=== PATIENT | male | born 1955 ===

== ENCOUNTER 2017-08-26 10:01 | Observation (INO) | payer BC, MEDICAID, OTHER ==
[2017-08-26 10:01] VITALS: BMI 28.3
--- NOTE | 2017-08-26 11:34 | C.PDOC ---
History Of Present Illness 62 yr old male w/PMHx of CAD, hypercolesterolemia, BPH presents to the ER for evaluation for feeling dizzy this morning, associated with vertigo. Patient admits, " recently changed my glasses and not sure if that cause it". Patient denies fever, headache, visual changes, focal deficits, neck pain, chest pain, palpitation, SOB, dyspnea, diaphoresis, abd. pain, nausea, vomiting, diarrhea, back pain, denies weakness, sensory or vascular deficits to B/L lEs. Ambulate to ED. Time Seen by Provider: 08/26/17 10:38 Chief Complaint (Nursing): Dizziness/Lightheaded History Per: Patient History/Exam Limitations: no limitations Onset/Duration Of Symptoms: Sudden Onset (Morning) Current Symptoms Are (Timing): Still Present Past Medical History Reviewed: Historical Data, Nursing Documentation, Vital Signs Vital Signs: Last Vital Signs Temp 97.2 F L 08/26/17 10:04 Pulse 62 08/26/17 12:09 Resp 18 08/26/17 12:09 BP 133/76 08/26/17 12:09 Pulse Ox 95 08/26/17 13:20 - Medical History PMH: Diabetes, HTN Surgical History: Coronary Stent - [facility] Procedures FLUOROSCOPY OF LEFT HEART USING LOW OSMOLAR CONTRAST (10/13/16) FLUOROSCOPY OF MULT COR ART USING L OSM CONTRAST (10/13/16) MEASURE OF CARDIAC SAMPL & PRESSURE, L HEART, PERC APPROACH (11/08/16) PLAIN RADIOGRAPHY OF LEFT HEART USING OTHER CONTRAST (11/08/16) PLAIN RADIOGRAPHY OF MULT COR ART USING OTH CONTRAST (11/08/16) Family History: States: No Known Family Hx - Social History Hx Tobacco Use: No Hx Alcohol Use: No Hx Substance Use: No - Immunization History Hx Tetanus Toxoid Vaccination: No Hx Influenza Vaccination: No Hx Pneumococcal Vaccination: No Review Of Systems Except As Marked, All Systems Reviewed And Found Negative. Constitutional: Negative for: Fever Cardiovascular: Negative for: Chest Pain, Palpitations Respiratory: Negative for: Shortness of Breath Gastrointestinal: Negative for: Nausea, Vomiting Musculoskeletal: Negative for: Neck Pain Neurological: Positive for: Dizziness. Negative for: Weakness, Numbness, Headache Physical Exam - Physical Exam Appears: Non-toxic, No Acute Distress Skin: Warm, Dry, No Rash Head: Atraumatic, Normacephalic Eye(s): bilateral: PERRL, Other (Horizontal Nystagmus ) Ear(s): Bilateral: Normal Oral Mucosa: Moist Lips: Normal Appearing, No Swelling Neck: Normal, Normal ROM, Supple Chest: Symmetrical, No Tenderness Cardiovascular: Rhythm Regular, No Murmur Respiratory: Normal Breath Sounds, No Rales, No Rhonchi, No Stridor, No Wheezing Extremity: Normal ROM, No Swelling Neurological/Psych: Oriented x3, Normal Speech, Normal Motor ED Course And Treatment - Laboratory Results Result Diagrams: 08/26/17 12:08 08/26/17 12:08 Lab Interpretation: Normal ECG: Interpreted By Me, Viewed By Me ECG Rhythm: Sinus Rhythm ECG Interpretation: No Acute Changes Interpretation Of ECG: SR@56/min, NAD, no acute T wave or ST-T changes. O2 Sat by Pulse Oximetry: 95 (RA) Pulse Ox Interpretation: Normal - Radiology CXR: Viewed By Me, Read By Radiologist CXR Interpretation: Yes: No Acute Disease - CT Scan/US CT - Head Other Rad Studies (CT/US): Read By Radiologist, Radiology Report Reviewed CT/US Interpretation: PROCEDURE: CT HEAD WITHOUT CONTRAST. HISTORY: vertigo. COMPARISON: None available. TECHNIQUE: Axial computed tomography images were obtained through the head/brain without intravenous contrast. Radiation dose: Total exam DLP = 919.79 mGy-cm. This CT exam was performed using one or more of the following dose reduction techniques: Automated exposure control, adjustment of the mA and/or kV according to patient size, and/or use of iterative reconstruction technique. FINDINGS: HEMORRHAGE: No intracranial hemorrhage. BRAIN: No mass effect or edema. No atrophy or chronic microvascular ischemic changes. VENTRICLES: Unremarkable. No hydrocephalus. CALVARIUM: Unremarkable. PARANASAL SINUSES: Unremarkable as visualized. No significant inflammatory changes. MASTOID AIR CELLS: Unremarkable as visualized. No inflammatory changes. OTHER FINDINGS: None. IMPRESSION: Normal CT of the Head. No intracranial mass, hemorrhage or evidence of acute infarct. Progress Note: Case discussed with and admission to OBS s/o med-on - call recommend with consult. Case discussed with medicine and admission arranged. On re-eval, pt remained stable, not n any apparent distress. Neuorlogicaly intact. Rdsults review and discussed with pt, agrees with plan. 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 - Scribe Statement The provider has reviewed the documentation as recorded by the Scribe Ayla Valle All medical record entries made by the Joeibfredo were at my direction and personally dictated by me. I have reviewed the chart and agree that the record accurately reflects my personal performance of the history, physical exam, medical decision making, and the department course for this patient. I have also personally directed, reviewed, and agree with the discharge instructions and disposition.
[2017-08-26] MEDS ORDERED: Sodium Chloride 0.9% 1,000 ML IV ONE (11:35)
--- NOTE | 2017-08-26 12:03 | RAD ---
HISTORY: chest pain COMPARISON: No prior. TECHNIQUE: Chest PA and lateral FINDINGS: LUNGS: No active pulmonary disease. PLEURA: No significant pleural effusion identified. No pneumothorax apparent. CARDIOVASCULAR: Normal. OSSEOUS STRUCTURES: Degenerative changes in the spine with paravertebral osteophytes. VISUALIZED UPPER ABDOMEN: Normal. OTHER FINDINGS: None. IMPRESSION: No active disease.
[2017-08-26 12:14] LABS: BASO % 0.7 % (0.0-2.0); EOS # 0.1 K/uL (0.0-0.7); EOS % 1.8 % (0.0-4.0); HEMATOCRIT 40.2 % (35.0-51.0); LYMPH # 1.6 K/uL (1.0-4.3); LYMPH % 26.6 % (20.0-40.0); MEAN CELL VOLUME 88.2 fL (80.0-94.0); MEAN CORPUSCULAR HEMOGLOBIN 30.3 pg (27.0-31.0); MEAN CORPUSCULAR HGB CONC 34.4 g/dL (33.0-37.0); MEAN PLATELET VOLUME 9.3 fL (7.2-11.7); MONO # 0.6 K/uL (0.0-0.8); MONO % 9.2 % (0.0-10.0); RED CELL DISTRIBUTION WIDTH 12.7 % (11.5-14.5)
[2017-08-26 12:24] LABS: CHLORIDE 104 mmol/L (98-107); POTASSIUM 4.2 mmol/L (3.6-5.2); SODIUM 141 mmol/L (132-148)
[2017-08-26 12:26] LABS: AST/SGOT 25 U/L (17-59); BILIRUBIN,TOTAL 0.7 mg/dL (0.2-1.3); CARBON DIOXIDE 25 mmol/L (22-30); GFR AFRICAN-AMERICAN > 60; TOTAL PROTEIN 7.9 g/dL (6.3-8.3)
[2017-08-26 12:27] LABS: ALB/GLOB RATIO 1.3 (1.0-2.1); ALKALINE PHOSPHATASE 61 U/L (38-126); ALT/SGPT 31 U/L (21-72); BLOOD UREA NITROGEN 17 mg/dL (9-20); CALCIUM 9.3 mg/dl (8.6-10.4); GLUCOSE,RANDOM 120 mg/dL (75-110)
[2017-08-26 12:29] LABS: URINE BILIRUBIN NEGATIVE (NEGATIVE); URINE BLOOD NEGATIVE (NEGATIVE); URINE COLOR Yellow (YELLOW); URINE GLUCOSE (UA) NORMAL (Normal); URINE KETONE NEGATIVE (NEGATIVE); URINE LEUKOCYTE ESTERASE TRACE Leu/uL (Negative); URINE PROTEIN NEGATIVE (NEGATIVE); URINE UROBILINOGEN NORMAL mg/dL (0.2-1.0); WBC URINE 2 /hpf (0-5)
--- NOTE | 2017-08-26 12:39 | CT ---
PROCEDURE: CT HEAD WITHOUT CONTRAST. HISTORY: vertigo COMPARISON: None available. TECHNIQUE: Axial computed tomography images were obtained through the head/brain without intravenous contrast. Radiation dose: Total exam DLP = 919.79 mGy-cm. This CT exam was performed using one or more of the following dose reduction techniques: Automated exposure control, adjustment of the mA and/or kV according to patient size, and/or use of iterative reconstruction technique. FINDINGS: HEMORRHAGE: No intracranial hemorrhage. BRAIN: No mass effect or edema. No atrophy or chronic microvascular ischemic changes. VENTRICLES: Unremarkable. No hydrocephalus. CALVARIUM: Unremarkable. PARANASAL SINUSES: Unremarkable as visualized. No significant inflammatory changes. MASTOID AIR CELLS: Unremarkable as visualized. No inflammatory changes. OTHER FINDINGS: None. IMPRESSION: Normal CT of the Head. No intracranial mass, hemorrhage or evidence of acute infarct.
--- NOTE | 2017-08-26 14:54 | CP.PCM.PN ---
Subjective - Date & Time of Evaluation Date of Evaluation: 08/26/17 Time of Evaluation: 14:53 - Subjective Subjective: CC: Dizziness HPI: Patient is a 62 year old male, with PMHx of type two diabetes mellitus , CAD, hyperlipidemia, and BPH, who presents to the ER for evaluation after feeling dizzy this morning. Patient reports the dizziness began "when he first rolled over this morning" and continued as he walked to go to his car. He states it felt like the room was spinning. He reports similar symptoms two months ago "when he was feeling stressed," but the symptoms went away on their own when the unnamed stressor ceased. Patient notes his prescription for his glasses changed recently. He denies vision loss, weakness of extremities, syncopal episode, facial droop, or headache. He reports eating and drinking normally lately, but admits difficulty urinating. He states his voiding has improved since being started on floxmax, finasteride for his BPH, but still finds himself urinating "a lot at night." Patient denies fever, headache, visual changes, focal deficits, neck pain, chest pain, palpitation, SOB, dyspnea , diaphoresis, abd. pain, nausea, vomiting, dysuria. PMHx: Diabetes Mellitus, type II (one year ago diagnosed), BPH, hyperlipidemia, CAD SHx:Cath with stent placement (Dr. Crespo - one year ago) Fam Hx: Non-contributory Shx: smoked for 5 years (1 ppd), quit 30 years ago; denies alcohol or drug use Objective - Vital Signs/Intake and Output Vital Signs (last 24 hours): Temp Pulse Resp BP Pulse Ox 97.2 F L 53 L 18 130/79 98 08/26/17 10:04 08/26/17 14:20 08/26/17 14:20 08/26/17 14:20 08/26/17 14:20 - Labs Labs: 08/26/17 12:08 08/26/17 12:08 PT 11.4 SECONDS (9.7-12.2) 08/26/17 12:08 INR 1.0 08/26/17 12:08 APTT 30 SECONDS (21-34) 08/26/17 12:08 - Constitutional Appears: Non-toxic, No Acute Distress - Head Exam Head Exam: ATRAUMATIC, NORMOCEPHALIC - Eye Exam Eye Exam: EOMI. absent: Scleral icterus Pupil Exam: PERRL - ENT Exam ENT Exam: Mucous Membranes Moist - Neck Exam Neck Exam: Full ROM - Respiratory Exam Respiratory Exam: Clear to Ausculation Bilateral, NORMAL BREATHING PATTERN. absent: Rales, Rhonchi, Wheezes - Cardiovascular Exam Cardiovascular Exam: Bradycardia, +S1, +S2 - GI/Abdominal Exam GI & Abdominal Exam: Soft, Normal Bowel Sounds. absent: Tenderness - Extremities Exam Extremities Exam: Normal Inspection. absent: Pedal Edema - Back Exam Back Exam: absent: CVA tenderness (L), CVA tenderness (R) - Neurological Exam Neurological Exam: Alert, Awake, Oriented x3 - Psychiatric Exam Psychiatric exam: Normal Affect, Normal Mood - Skin Skin Exam: Normal Color, Warm Assessment and Plan - Assessment and Plan (Free Text) Plan: Dizziness Pt reports "room spinning" with change of position Orthostatic vitals: WNL CXR: NAD CT Head (08/26/17): normal CT head. No mass, hemorrhage, or acute infarct. (see full report) EKG: sinus demario, 56 bpm, no st/t wave changes Cardio consult: Dr. Crespo, help appreciated - f/u DRISS x 2 - f/u ECHO - f/u TSH, free t4 Meclizine 25mg PO TID CAD Hx of stent placement one year ago Crestor 5mg HS Toprol 25mg PO BID ASA 81mg PO daily Type Two diabetes mellitus Accuchecks Metformin 500mg PO BID Lisinopril 5mg PO Daily - f/u A1C BPH Flomax 0.4mg PO daily Finasteride 5mg PO Daily UA on admission: WNL Monitor Prophylaxis Heparin 5000u SC Q12H Pepcid 20mg PO BID SCDs Discussed with Dr. Dewayne Montana PGY-2
[2017-08-26 20:30] VITALS: RESP 20
--- NOTE | 2017-08-26 22:17 | CP.PCM.CON ---
History of Present Illness - History of Present Illness History of Present Illness: CC: Dizziness HPI: Patient is a 62 year old male, with PMHx of type two diabetes mellitus , CAD, hyperlipidemia, and BPH, who presents to the ER for evaluation after feeling dizzy this morning. Patient reports the dizziness began "when he first rolled over this morning" and continued as he walked to go to his car. He states it felt like the room was spinning. He reports similar symptoms two months ago "when he was feeling stressed," but the symptoms went away on their own when the unnamed stressor ceased. Patient notes his prescription for his glasses changed recently. He denies vision loss, weakness of extremities, syncopal episode, facial droop, or headache. He reports eating and drinking normally lately, but admits difficulty urinating. He states his voiding has improved since being started on floxmax, finasteride for his BPH, but still finds himself urinating "a lot at night." Patient denies fever, headache, visual changes, focal deficits, neck pain, chest pain, palpitation, SOB, dyspnea , diaphoresis, abd. pain, nausea, vomiting, dysuria. PMHx: Diabetes Mellitus, type II (one year ago diagnosed), BPH, hyperlipidemia, CAD SHx:Cath with stent placement (one year ago) Fam Hx: Non-contributory Shx: smoked for 5 years (1 ppd), quit 30 years ago; denies alcohol or drug use Physical Examination - Constitutional Appears: Non-toxic, No Acute Distress - Head Exam Head Exam: ATRAUMATIC, NORMOCEPHALIC - Eye Exam Eye Exam: EOMI. absent: Scleral icterus Pupil Exam: PERRL - ENT Exam ENT Exam: Mucous Membranes Moist - Neck Exam Neck Exam: Full ROM - Respiratory Exam Respiratory Exam: Clear to Ausculation Bilateral, NORMAL BREATHING PATTERN. absent: Rales, Rhonchi, Wheezes - Cardiovascular Exam Cardiovascular Exam: Bradycardia, +S1, +S2 - GI/Abdominal Exam GI & Abdominal Exam: Soft, Normal Bowel Sounds. absent: Tenderness - Extremities Exam Extremities Exam: Normal Inspection. absent: Pedal Edema - Back Exam Back Exam: absent: CVA tenderness (L), CVA tenderness (R) - Neurological Exam Neurological Exam: Alert, Awake, Oriented x3 - Psychiatric Exam Psychiatric exam: Normal Affect, Normal Mood - Skin Skin Exam: Normal Color, Warm Past Patient History - Infectious Disease Hx of Infectious Diseases: None - Past Medical History & Family History Past Medical History?: Yes - Past Social History Smoking Status: Former Smoker - CARDIAC Hx Hypertension: Yes - PULMONARY Hx Respiratory Disorders: No - NEUROLOGICAL Hx Neurological Disorder: No - HEENT Hx HEENT Problems: No - RENAL Hx Chronic Kidney Disease: No - ENDOCRINE/METABOLIC Hx Endocrine Disorders: Yes Hx Diabetes Mellitus Type 2: Yes - MUSCULOSKELETAL/RHEUMATOLOGICAL Hx Falls: No - PSYCHIATRIC Hx Substance Use: No - SURGICAL HISTORY Hx Coronary Stent: Yes - ANESTHESIA Hx Anesthesia: Yes Hx Anesthesia Reactions: No Meds Allergies/Adverse Reactions: Allergies Allergy/AdvReac Type Severity Reaction Status Date / Time No Known Allergies Allergy Verified 11/08/16 15:38 - Medications Medications: Current Medications Aspirin (Aspirin Chewable) 81 mg PO DAILY [facility] Famotidine (Pepcid) 20 mg PO BID [facility] Last Admin: 08/26/17 21:28 Dose: 20 mg Finasteride (Proscar) 5 mg PO DAILY [facility] Heparin Sodium (Porcine) (Heparin) 5,000 units SC Q12 [facility] Last Admin: 08/26/17 21:29 Dose: 5,000 units Lisinopril (Zestril) 5 mg PO DAILY [facility] Meclizine HCl (Antivert) 25 mg PO TID [facility] Last Admin: 08/26/17 21:28 Dose: 25 mg Metformin HCl (Glucophage) 500 mg PO BID [facility] Last Admin: 08/26/17 21:27 Dose: 500 mg Metoprolol Tartrate (Lopressor) 12.5 mg PO DAILY [facility] Rosuvastatin Calcium (Crestor) 5 mg PO HS [facility] Last Admin: 08/26/17 21:27 Dose: 5 mg Tamsulosin HCl (Flomax) 0.4 mg PO DAILY [facility] Results - Vital Signs Recent Vital Signs: Last Vital Signs Temp 98.1 F 08/26/17 20:29 Pulse 56 L 08/26/17 20:29 Resp 20 08/26/17 20:29 BP 144/83 08/26/17 20:29 Pulse Ox 95 08/26/17 20:29 - Labs Result Diagrams: 08/26/17 12:08 08/26/17 12:08 Labs: Laboratory Results - last 24 hr 08/26/17 08/26/17 08/26/17 12:08 12:08 12:08 WBC 6.0 RBC 4.56 Hgb 13.8 Hct 40.2 MCV 88.2 MCH 30.3 MCHC 34.4 RDW 12.7 Plt Count 185 MPV 9.3 Neut % (Auto) 61.7 Lymph % (Auto) 26.6 [place] % (Auto) 9.2 Eos % (Auto) 1.8 Baso % (Auto) 0.7 Neut # 3.7 Lymph # 1.6 [place] # 0.6 Eos # 0.1 Baso # 0.0 PT 11.4 INR 1.0 APTT 30 Sodium 141 Potassium 4.2 Chloride 104 Carbon Dioxide 25 Anion Gap 16 BUN 17 Creatinine 0.9 Est GFR ( Amer) > 60 Est GFR (Non-Af Amer) > 60 POC Glucose (mg/dL) Random Glucose 120 H Calcium 9.3 Total Bilirubin 0.7 AST 25 ALT 31 Alkaline Phosphatase 61 Total Creatine Kinase CK-MB (Mass) Troponin I < 0.0120 Troponin I, Quant NT-Pro-B Natriuret Pep 34.5 Total Protein 7.9 Albumin 4.5 Globulin 3.4 Albumin/Globulin Ratio 1.3 Urine Color Urine Clarity Urine pH Ur Specific [place] Urine Protein Urine Glucose (UA) Urine Ketones Urine Blood Urine Nitrate Urine Bilirubin Urine Urobilinogen Ur Leukocyte Esterase Urine WBC (Auto) Ur Squamous Epith Cells 08/26/17 08/26/17 08/26/17 12:18 18:12 20:58 WBC RBC Hgb Hct MCV MCH MCHC RDW Plt Count MPV Neut % (Auto) Lymph % (Auto) [place] % (Auto) Eos % (Auto) Baso % (Auto) Neut # Lymph # [place] # Eos # Baso # PT INR APTT Sodium Potassium Chloride Carbon Dioxide Anion Gap BUN Creatinine Est GFR ( Amer) Est GFR (Non-Af Amer) POC Glucose (mg/dL) 106 Random Glucose Calcium Total Bilirubin AST ALT Alkaline Phosphatase Total Creatine Kinase 119 CK-MB (Mass) 0.94 Troponin I Troponin I, Quant < 0.0120 NT-Pro-B Natriuret Pep Total Protein Albumin Globulin Albumin/Globulin Ratio Urine Color Yellow Urine Clarity Clear Urine pH 6.0 Ur Specific [place] 1.023 Urine Protein Negative Urine Glucose (UA) Normal Urine Ketones Negative Urine Blood Negative Urine Nitrate Negative Urine Bilirubin Negative Urine Urobilinogen Normal Ur Leukocyte Esterase Trace Urine WBC (Auto) 2 Ur Squamous Epith Cells 3 08/26/17 21:59 WBC RBC Hgb Hct MCV MCH MCHC RDW Plt Count MPV Neut % (Auto) Lymph % (Auto) [place] % (Auto) Eos % (Auto) Baso % (Auto) Neut # Lymph # [place] # Eos # Baso # PT INR APTT Sodium Potassium Chloride Carbon Dioxide Anion Gap BUN Creatinine Est GFR ( Amer) Est GFR (Non-Af Amer) POC Glucose (mg/dL) 191 H Random Glucose Calcium Total Bilirubin AST ALT Alkaline Phosphatase Total Creatine Kinase CK-MB (Mass) Troponin I Troponin I, Quant NT-Pro-B Natriuret Pep Total Protein Albumin Globulin Albumin/Globulin Ratio Urine Color Urine Clarity Urine pH Ur Specific [place] Urine Protein Urine Glucose (UA) Urine Ketones Urine Blood Urine Nitrate Urine Bilirubin Urine Urobilinogen Ur Leukocyte Esterase Urine WBC (Auto) Ur Squamous Epith Cells Assessment & Plan - Assessment and Plan (Free Text) Assessment: Dizziness Pt reports "room spinning" with change of position Orthostatic vitals: WNL CXR: NAD CT Head (08/26/17): normal CT head. No mass, hemorrhage, or acute infarct. (see full report) EKG: sinus demario, 56 bpm, no st/t wave changes - f/u RDISS x 2 - f/u ECHO - f/u TSH, free t4 Meclizine 25mg PO TID CAD Hx of stent placement one year ago Crestor 5mg HS Toprol 25mg PO BID ASA 81mg PO daily Type Two diabetes mellitus Accuchecks Metformin 500mg PO BID Lisinopril 5mg PO Daily - f/u A1C BPH Flomax 0.4mg PO daily Finasteride 5mg PO Daily UA on admission: WNL Monitor Prophylaxis Heparin 5000u SC Q12H Pepcid 20mg PO BID SCDs Check ECHO, Carotid duplex and Stress test
[2017-08-27 07:28] LABS: BASO # 0.1 K/uL (0.0-0.2); BASO % 0.9 % (0.0-2.0); EOS # 0.2 K/uL (0.0-0.7); HEMATOCRIT 41.4 % (35.0-51.0); LYMPH # 1.7 K/uL (1.0-4.3); LYMPH % 29.8 % (20.0-40.0); MEAN CELL VOLUME 88.7 fL (80.0-94.0); MEAN CORPUSCULAR HGB CONC 33.8 g/dL (33.0-37.0); MEAN PLATELET VOLUME 9.4 fL (7.2-11.7); MONO # 0.6 K/uL (0.0-0.8); MONO % 9.8 % (0.0-10.0); NRBC % 0.1 % (0.0-2.0); RED CELL DISTRIBUTION WIDTH 12.7 % (11.5-14.5); WHITE BLOOD COUNT 5.6 K/uL (4.8-10.8)
[2017-08-27 07:34] LABS: ALB/GLOB RATIO 1.5 (1.0-2.1); ALKALINE PHOSPHATASE 56 U/L (38-126); ALT/SGPT 29 U/L (21-72); AST/SGOT 28 U/L (17-59); BILIRUBIN,TOTAL 0.3 mg/dL (0.2-1.3); BLOOD UREA NITROGEN 16 mg/dL (9-20); CALCIUM 9.5 mg/dl (8.6-10.4); CARBON DIOXIDE 26 mmol/L (22-30); CHLORIDE 101 mmol/L (98-107); GFR AFRICAN-AMERICAN > 60; GLUCOSE,RANDOM 121 mg/dL (75-110); MAGNESIUM 1.8 mg/dL (1.6-2.3); PHOSPHOROUS 3.6 mg/dL (2.5-4.5); POTASSIUM 4.2 mmol/L (3.6-5.2); SODIUM 140 mmol/L (132-148); TOTAL PROTEIN 6.9 g/dL (6.3-8.3)
[2017-08-27] MEDS ORDERED: Aminophylline 25 mg/ml Inj ONE (10:01)
--- NOTE | 2017-08-27 10:23 | CP.PCM.PN ---
Subjective - Date & Time of Evaluation Date of Evaluation: 08/27/17 Time of Evaluation: 10:23 - Subjective Subjective: PGY-[address] Buchanan's service: Pt seen and examined at bedside. Nursing reports no acute events overnight. Pt for ECHO and stress test today in cardiology. He admits to being tired after stress test, but denies dizziness return overnight, he further denies chest pain , palpitations, SOB, abdominal pain, N/V/D/C. Objective - Vital Signs/Intake and Output Vital Signs (last 24 hours): Temp Pulse Resp BP Pulse Ox 97.7 F 61 20 129/82 96 08/26/17 23:33 08/26/17 23:33 08/26/17 23:33 08/26/17 23:33 08/26/17 23:33 Intake and Output: 08/27/17 08/27/17 06:59 18:59 Intake Total 0 Balance 0 - Medications Medications: Current Medications Aspirin (Aspirin Chewable) 81 mg PO DAILY [facility] Last Admin: 08/27/17 10:05 Dose: Not Given Famotidine (Pepcid) 20 mg PO BID [facility] Last Admin: 08/27/17 10:06 Dose: Not Given Finasteride (Proscar) 5 mg PO DAILY [facility] Last Admin: 08/27/17 10:06 Dose: Not Given Heparin Sodium (Porcine) (Heparin) 5,000 units SC Q12 [facility] Last Admin: 08/27/17 10:06 Dose: Not Given Lisinopril (Zestril) 5 mg PO DAILY [facility] Last Admin: 08/27/17 10:06 Dose: Not Given Meclizine HCl (Antivert) 25 mg PO TID [facility] Last Admin: 08/27/17 10:05 Dose: Not Given Metformin HCl (Glucophage) 500 mg PO BID [facility] Last Admin: 08/27/17 10:06 Dose: Not Given Metoprolol Tartrate (Lopressor) 12.5 mg PO DAILY [facility] Last Admin: 08/27/17 10:06 Dose: Not Given Rosuvastatin Calcium (Crestor) 5 mg PO HS [facility] Last Admin: 08/26/17 21:27 Dose: 5 mg Tamsulosin HCl (Flomax) 0.4 mg PO DAILY [facility] Last Admin: 08/27/17 10:05 Dose: Not Given - Labs Labs: 08/27/17 07:11 08/27/17 07:11 PT 11.4 SECONDS (9.7-12.2) 08/26/17 12:08 INR 1.0 08/26/17 12:08 APTT 30 SECONDS (21-34) 08/26/17 12:08 - Additional Findings Additional findings: - Constitutional Appears: Non-toxic, No Acute Distress - Head Exam Head Exam: ATRAUMATIC, NORMOCEPHALIC - Eye Exam Eye Exam: EOMI. absent: Scleral icterus Pupil Exam: PERRL - Eliecer-Hallpike: positive, horizontal nystagmus - ENT Exam ENT Exam: Mucous Membranes Moist - Neck Exam Neck Exam: Full ROM - Respiratory Exam Respiratory Exam: Clear to Ausculation Bilateral, NORMAL BREATHING PATTERN. absent: Rales, Rhonchi, Wheezes - Cardiovascular Exam Cardiovascular Exam: Bradycardia, +S1, +S2 - GI/Abdominal Exam GI & Abdominal Exam: Soft, Normal Bowel Sounds. absent: Tenderness - Extremities Exam Extremities Exam: Normal Inspection. absent: Pedal Edema - Back Exam Back Exam: absent: CVA tenderness (L), CVA tenderness (R) - Neurological Exam Neurological Exam: Alert, Awake, Oriented x3 - Psychiatric Exam Psychiatric exam: Normal Affect, Normal Mood - Skin Skin Exam: Normal Color, Warm Assessment and Plan - Assessment and Plan (Free Text) Plan: Dizziness Pt reports "room spinning" with change of position Orthostatic vitals: WNL Eliecer-Hallpike positive CXR: NAD CT Head (08/26/17): normal CT head. No mass, hemorrhage, or acute infarct. (see full report) EKG: sinus demario, 56 bpm, no st/t wave changes Cardio consult: Dr. Crespo, help appreciated - DRISS negative x 3 - TSH, free t4 WNL - f/u ECHO, Stress Test, Carotid Doppler Meclizine 25mg PO TID CAD Hx of prior stent placement - pt not currently taking Plavix Crestor 5mg HS Toprol 12.5mg PO BID ASA 81mg PO daily Type Two diabetes mellitus Well-controlled - A1C: 6.8 Accuchecks Metformin 500mg PO BID Lisinopril 5mg PO Daily BPH Flomax 0.4mg PO daily Finasteride 5mg PO Daily UA on admission: WNL Monitor Prophylaxis Heparin 5000u SC Q12H Pepcid 20mg PO BID SCDs Disposition: Pending cardiac workup results, patient marked for discharge today Discussed with Dr. Dewayne Montana PGY-2
--- NOTE | 2017-08-27 15:29 | VASCLAB ---
PROCEDURE: HISTORY: persistent dizziness COMPARISON: None available. TECHNIQUE: Grayscale and duplex Doppler evaluation of the cervical carotid and vertebral arteries were performed. The common carotid, carotid bifurcations and cervical Internal Carotid Artery (ICA) and proximal External Carotid Artery (ECA) were evaluated. The vertebral arteries were evaluated for gross patency and flow direction. Report prepared by Jaguar Tee, BS, RVT FINDINGS: RIGHT CAROTID ARTERIES: 1. Common Carotid Artery: No significant focal plaque formation of the right common carotid artery. Maximum Peak Systolic velocity: 82 cm/sec: End-diastolic velocity 20 cm/sec. 2. Carotid Bifurcation: plaque formation. Maximum Peak Systolic velocity: 68 cm/sec: End-diastolic velocity 19 cm/sec. 3. Internal Carotid Artery: Plaque description: 3.1. Proximal Segment: Peak systolic velocity 69 cm/sec: End-diastolic velocity 18 cm/sec - % stenosis 0-15% 3.2. Middle Segment: Peak systolic velocity 67 cm/sec: End-diastolic velocity 25 cm/sec - % stenosis 0-15% 3.3. Distal Segment: Peak systolic velocity 59 cm/sec: End-diastolic velocity 26 cm/sec - % stenosis 0-15% 4. External Carotid Artery: No significant focal plaque formation. Peak systolic velocity 90 cm/sec 5. ICA/CCA Ratio: 0.8 LEFT CAROTID ARTERIES: 1. Common Carotid Artery: No significant focal plaque formation of the left common carotid artery. Maximum Peak Systolic velocity: 90 cm/sec: End-diastolic velocity 27 cm/sec. 2. Carotid Bifurcation: plaque formation. Maximum Peak Systolic velocity: 75 cm/sec: End-diastolic velocity 22 cm/sec. 3. Internal Carotid Artery: Plaque description: 3.1. Proximal Segment: Peak systolic velocity 75 cm/sec: End-diastolic velocity 22 cm/sec - % stenosis 0-15% 3.2. Middle Segment: Peak systolic velocity 78 cm/sec: End-diastolic velocity 27 cm/sec - % stenosis 0-15% 3.3. Distal Segment: Peak systolic velocity 73 cm/sec: End-diastolic velocity 30 cm/sec - % stenosis 0-15% 4. External Carotid Artery: No significant focal plaque formation. Peak systolic velocity 60 cm/sec 5. ICA/CCA Ratio: 0.9 VERTEBRAL ARTERIES: 1. Right Vertebral Artery: The right vertebral artery flow direction is antegrade. 2. Left Vertebral Artery: The left vertebral artery flow direction is antegrade. OTHER FINDINGS: 1. Right Brachial Blood pressure: 132 mmHg. 2. Left Brachial Blood pressure: 128 mmHg. IMPRESSION: RIGHT: Duplex scan does not suggest hemodynamically significant stenosis of the right extracranial carotid arteries. LEFT: Duplex scan does not suggest hemodynamically significant stenosis of the left extracranial carotid arteries.
[2017-08-27 17:08] VITALS: BP 124/77; PULSE 59; TEMP 97.9; O2SAT 97
--- NOTE | 2017-08-28 09:37 | HP ---
HISTORY OF PRESENT ILLNESS: Mr. Sanjuana Dubon is a 62-year-old male admitted to the hospital with dizziness, weakness, fatigue. The patient came to the ER, advised admission. The patient denies chest pain, denies shortness of breath. PHYSICAL EXAMINATION: GENERAL: The patient is awake, alert, and oriented. There are no postop changes. VITAL SIGNS: Blood pressure 110/70, temperature 98, pulse of 90. HEENT: Within normal limits. NECK: Supple. CHEST: Symmetrical. HEART: Regular. ABDOMEN: Soft. EXTREMITIES: No edema. IMPRESSION AND PLAN: The patient has dizziness . Patient bedrest, echocardiogram, and carotid Doppler. Jaleesa Buchanan MD
--- NOTE | 2017-08-29 17:30 | CARD ---
APPROVED REPORT EXAM: Two-dimensional and M-mode echocardiogram with Doppler and color Doppler. Other Information Quality : GoodRhythm : NSR INDICATION Dizziness and Vertigo Atrial Fibrillation Cardiac Disease: CAD Chest Pain RISK FACTORS Hypertension Hyperlipidemia Diabetes 2D DIMENSIONS IVSd0.7 (0.7-1.1cm)LVDd4.9 (3.9-5.9cm) PWd0.8 (0.7-1.1cm)LVDs2.9 (2.5-4.0cm) FS (%) 41.5 %LVEF (%)72.2 (>50%) M-Mode DIMENSIONS Left Atrium (MM)3.80 (2.5-4.0cm)Aortic Root2.58 (2.2-3.7cm) Aortic Cusp Exc.1.73 (1.5-2.0cm) Mitral Valve MV E Asgigjjs95.0cm/sMV A Btjuftjm11.2cm/sE/A ratio1.3 TDI E/Lateral E'0.0E/Medial E'0.0 Tricuspid Valve TR Peak Hukwxpzb791vw/sTR Peak Gr.[id number] <Conclusion> Left ventricle: thickness: normal; size: normal; overall ejection fraction: 65%: diastolic filling pressures: normal Mitral valve: annulus: normal: leaflets: normal: excursion: normal; no significant trans-mitral gradient:mild incompetence: left atrium: normal Aortic valve: leaflets: mild calcific thickening; excursion: normal; no significant trans-aortic gradient: No significant incompetence: aortic root: normal Right sided Structures: Pulmonary valve: normal; no significant incompetence; Tricuspid valve: normal; mild incompetence: Intra-cardiac hemodynamics: pulmonary systolic pressures: normal; central venous pressures: normal No pericardial effusion
== END 2017-08-27 18:00 | disposition home or self-care (01) ==
LOC: C.ER 10:01 → C.9E 13:02 → C.3T 17:55
PROVIDERS: ADMIT Internal Medicine Pulmonary Disease; ATTEND Internal Medicine Pulmonary Disease
DX: R42 Dizziness and giddiness (principal); E78.5 Hyperlipidemia, unspecified; I10 Essential (primary) hypertension; E11.9 Type 2 diabetes mellitus without complications; I25.10 Atherosclerotic heart disease of native coronary artery without angina pectoris; N40.0 Benign prostatic hyperplasia without lower urinary tract symptoms; Z87.891 Personal history of nicotine dependence
CPT/HCPCS: 36415; 70450; 71020; 80053; 81001; 82948; 83036; 83735; 83880; 84100; 84439; 84443; 84484; 85025; 85610; 85730; 93306; 93880; 96360; 99285; G0378; J1644; J2785; J7040

== ENCOUNTER 2017-11-07 16:58 | Inpatient (IN) | payer OTHER ==
[2017-11-07 16:58] VITALS: BMI 28.3
--- NOTE | 2017-11-07 18:06 | C.PDOC ---
History Of Present Illness Patient sent to ED by his electrical experimental mechanic Dr. Crespo, found to be in atrial flutter on EKG in the office. Patient states he has been having intermittent palpitations for approx 1 week, sometimes associated with chest pain/pressure and mild SOB. He denies cough, fever, abdominal pain, nausea/vomiting. PMHx of DM, HTN, atrial fibrillation. Time Seen by Provider: 11/07/17 17:04 Chief Complaint (Nursing): Palpitations History Per: Patient, Other (Dr. Crespo) History/Exam Limitations: no limitations Onset/Duration Of Symptoms: Days (1 week) Current Symptoms Are (Timing): Still Present Severity: Moderate (intermittent) Past Medical History Reviewed: Historical Data, Nursing Documentation, Vital Signs Vital Signs: Last Vital Signs Temp 98.1 F 11/10/17 15:20 Pulse 61 11/10/17 15:20 Resp 18 11/10/17 15:20 BP 113/81 11/10/17 15:20 Pulse Ox 95 11/10/17 15:20 - Medical History PMH: Diabetes, HTN Surgical History: Coronary Stent - [facility] Procedures FLUOROSCOPY OF LEFT HEART USING LOW OSMOLAR CONTRAST (10/13/16) FLUOROSCOPY OF MULT COR ART USING L OSM CONTRAST (10/13/16) MEASURE OF CARDIAC SAMPL & PRESSURE, L HEART, PERC APPROACH (11/08/16) PLAIN RADIOGRAPHY OF LEFT HEART USING OTHER CONTRAST (11/08/16) PLAIN RADIOGRAPHY OF MULT COR ART USING OTH CONTRAST (11/08/16) Family History: States: No Known Family Hx - Social History Hx Tobacco Use: No Hx Alcohol Use: No Hx Substance Use: No - Immunization History Hx Tetanus Toxoid Vaccination: No Hx Influenza Vaccination: No Hx Pneumococcal Vaccination: No Review Of Systems Except As Marked, All Systems Reviewed And Found Negative. Constitutional: Negative for: Fever, Chills Cardiovascular: Positive for: Chest Pain, Palpitations Respiratory: Negative for: Cough, Shortness of Breath Gastrointestinal: Negative for: Nausea, Vomiting, Abdominal Pain Skin: Negative for: Rash Physical Exam - Physical Exam Appears: Well, Non-toxic, No Acute Distress Skin: Normal Color, Warm, Dry, No Rash Oral Mucosa: Moist Cardiovascular: Rhythm Regular (mildly tachycardic and occasionally irregular) Respiratory: Normal Breath Sounds, No Rales, No Rhonchi, No Wheezing Gastrointestinal/Abdominal: Normal Exam, Bowel Sounds, Soft, No Tenderness Extremity: Normal ROM, No Pedal Edema, No Calf Tenderness Pulses: Left Dorsalis Pedis: Normal, Right Dorsalis Pedis: Normal Neurological/Psych: Oriented x3 ED Course And Treatment - Laboratory Results Result Diagrams: 11/07/17 18:10 11/07/17 18:10 ECG: Interpreted By Me, Viewed By Me (atrial flutter 90 bpm, normal axis, occasional PVCs, no acute ST changes) ECG Interpretation: Abnormal O2 Sat by Pulse Oximetry: 96 (RA) Pulse Ox Interpretation: Normal Progress Note: Blood work, CXR, EKG ordered and reviewed. Patient given PO ASA. Prior visits reviewed, patient has been in atrial fibrillation before, does not appear to be on any anticoagulation other than ASA. SC Lovenox given. 6:27pm- Spoke with Dr. Crespo, requests admisson under Dr. Alyssa Murcia and EP consult Dr. Stoll, echo order for AM. Patient's PMD is clinic doctor, does not admit here. - Physician Consult Information Physician Contacted: Mee Murcia Outcome Of Conversation: Discussed patient with Dr. Alyssa Murcia, agrees with admission to his service. Disposition - Disposition Disposition: HOSPITALIZED Disposition Time: 18:45 Condition: STABLE - Clinical Impression Clinical Impression: Dyspnea, Atrial flutter, Palpitations, Chest pain Decision To Admit - Pt Status Changed To: Hospital Disposition Of: Inpatient - Admit Certification Admit to Inpatient:: After my assessment, the patient will require hospitalization for at least two midnights. This is because of the severity of symptoms shown, intensity of services needed, and/or the medical risk in this patient being treated as an outpatient. - InPatient: Physician Admission Certification: I certify that this patient requires 2 or more midnights of care for the following reason:: see notes - . Bed Request Type: Telemetry Admitting Physician: Mee Murcia Patient Diagnosis: Chest pain, Palpitations, Dyspnea, Atrial flutter
[2017-11-07 18:14] LABS: BASO # 0.1 K/uL (0.0-0.2); EOS # 0.2 K/uL (0.0-0.7); EOS % 2.6 % (0.0-4.0); HEMATOCRIT 41.5 % (35.0-51.0); LYMPH # 2.3 K/uL (1.0-4.3); LYMPH % 38.3 % (20.0-40.0); MEAN CORPUSCULAR HEMOGLOBIN 29.7 pg (27.0-31.0); MEAN CORPUSCULAR HGB CONC 33.7 g/dL (33.0-37.0); MEAN PLATELET VOLUME 9.8 fL (7.2-11.7); MONO # 0.5 K/uL (0.0-0.8); MONO % 8.9 % (0.0-10.0); RED CELL DISTRIBUTION WIDTH 13.1 % (11.5-14.5)
[2017-11-07 18:39] LABS: ALKALINE PHOSPHATASE 55 U/L (38-126); ALT/SGPT 47 U/L (21-72); AST/SGOT 28 U/L (17-59); BILIRUBIN,TOTAL 0.6 mg/dL (0.2-1.3); BLOOD UREA NITROGEN 13 mg/dL (9-20); CARBON DIOXIDE 28 mmol/L (22-30); CHLORIDE 105 mmol/L (98-107); GFR AFRICAN-AMERICAN > 60; GLUCOSE,RANDOM 112 mg/dL (75-110); POTASSIUM 4.1 mmol/L (3.6-5.2); SODIUM 140 mmol/L (132-148); TOTAL PROTEIN 8.5 g/dL (6.3-8.3)
[2017-11-07] MEDS ORDERED: Enoxaparin 40 mg Syringe SC STA (18:42)
[2017-11-07] MEDS ORDERED: Enoxaparin 80 mg Syringe ONE (19:08)
[2017-11-07 19:09] LABS: THYROID STIMULATING HORMONE 0.93 mIU/L (0.46-4.68)
--- NOTE | 2017-11-07 23:03 | CP.PCM.HP ---
History of Present Illness - History of Present Illness History of Present Illness: 62-year-old male with PMHDM, HTN, atrial fibrillation and IHD [PCI done] is referred to the ER by his route relief driver from his office for atrial flutter on EKG. C/Opalpitations for 1 week. Intermittent, occurs at rest as well as on exertion, associated with chest pain. C/O- chest pain for 1 week. Insidious in onset, nonprogressive, vague, mild, dull aching sensation, associated with palpitations, intensity of 4/10, partly relieved by rest. C/O-shortness of breath for 1 week. Insidious in onset, nonprogressive, occurs only on exertion and associated with palpitations, NYHA grade 2-3, relieved with rest. No C/O-fever, cough, hemoptysis, orthopnea, PND. Present on Admission - Present on Admission Any Indicators Present on Admission: No Past Patient History - Infectious Disease Hx of Infectious Diseases: None - Past Medical History & Family History Past Medical History?: Yes - Past Social History Smoking Status: Never Smoked - CARDIAC Hx Hypertension: Yes - PULMONARY Hx Respiratory Disorders: No Hx Emphysema: No - NEUROLOGICAL Hx Neurological Disorder: No - HEENT Hx HEENT Problems: No - RENAL Hx Chronic Kidney Disease: No - ENDOCRINE/METABOLIC Hx Endocrine Disorders: Yes Hx Diabetes Mellitus Type 2: Yes - HEMATOLOGICAL/ONCOLOGICAL Hx Blood Disorders: No - INTEGUMENTARY Hx Dermatological Problems: No - MUSCULOSKELETAL/RHEUMATOLOGICAL Hx Musculoskeletal Disorders: No Hx Falls: No - GASTROINTESTINAL Hx Gastrointestinal Disorders: No - GENITOURINARY/GYNECOLOGICAL Hx Genitourinary Disorders: No - PSYCHIATRIC Hx Substance Use: No - SURGICAL HISTORY Hx Coronary Stent: Yes - ANESTHESIA Hx Anesthesia: Yes Hx Anesthesia Reactions: No Hx Malignant Hyperthermia: No Meds Home Medications: Home Medication List Medication Instructions Recorded Confirmed Type Apixaban [Eliquis] 2.5 mg PO BID #60 tablet 11/15/17 Rx Rosuvastatin Calcium [Crestor] 20 mg PO HS #30 tab 11/15/17 Rx Allergies/Adverse Reactions: Allergies Allergy/AdvReac Type Severity Reaction Status Date / Time No Known Allergies Allergy Verified 11/07/17 17:16 Results - Vital Signs Recent Vital Signs: Last Vital Signs Temp 98.4 F 11/07/17 22:57 Pulse 92 H 11/07/17 22:57 Resp 16 12/07/17 22:57 BP 147/97 H 11/07/17 22:57 Pulse Ox 99 11/07/17 22:57 - Labs Result Diagrams: 11/07/17 18:10 11/07/17 18:10 Labs: Laboratory Results - last 24 hr 11/07/17 11/07/17 11/07/17 18:05 18:10 18:10 WBC 6.0 RBC 4.72 Hgb 14.0 Hct 41.5 MCV 88.0 MCH 29.7 MCHC 33.7 RDW 13.1 Plt Count 195 MPV 9.8 Neut % (Auto) 49.2 L Lymph % (Auto) 38.3 [place] % (Auto) 8.9 Eos % (Auto) 2.6 Baso % (Auto) 1.0 Neut # 3.0 Lymph # 2.3 [place] # 0.5 Eos # 0.2 Baso # 0.1 PT INR APTT Sodium 140 Potassium 4.1 Chloride 105 Carbon Dioxide 28 Anion Gap 12 BUN 13 Creatinine 1.0 Est GFR ( Amer) > 60 Est GFR (Non-Af Amer) > 60 POC Glucose (mg/dL) 105 Random Glucose 112 H Calcium 9.0 Total Bilirubin 0.6 AST 28 ALT 47 Alkaline Phosphatase 55 Total Creatine Kinase 99 CK-MB (Mass) 0.70 Troponin I 0.0420 Total Protein 8.5 H Albumin 4.2 Globulin 4.3 H Albumin/Globulin Ratio 1.0 TSH 3rd Generation 0.93 11/07/17 18:10 WBC RBC Hgb Hct MCV MCH MCHC RDW Plt Count MPV Neut % (Auto) Lymph % (Auto) [place] % (Auto) Eos % (Auto) Baso % (Auto) Neut # Lymph # [place] # Eos # Baso # PT 11.1 INR 1.0 APTT 29 Sodium Potassium Chloride Carbon Dioxide Anion Gap BUN Creatinine Est GFR ( Amer) Est GFR (Non-Af Amer) POC Glucose (mg/dL) Random Glucose Calcium Total Bilirubin AST ALT Alkaline Phosphatase Total Creatine Kinase CK-MB (Mass) Troponin I Total Protein Albumin Globulin Albumin/Globulin Ratio TSH 3rd Generation
--- NOTE | 2017-11-08 08:32 | RAD ---
HISTORY: SOB COMPARISON: Chest x-ray performed 08/26/17 TECHNIQUE: Chest, one view. FINDINGS: LUNGS: No focal consolidation. Please note that chest x-ray has limited sensitivity for the detection of pulmonary masses. PLEURA: No significant pleural effusion identified. No definite pneumothorax . CARDIOVASCULAR: The cardiomediastinal silhouette appears within normal limits of size. OSSEOUS STRUCTURES: No acute osseous abnormality identified. VISUALIZED UPPER ABDOMEN: Unremarkable. OTHER FINDINGS: None. IMPRESSION: No focal consolidation, significant pleural effusion, or definite pneumothorax identified.
--- NOTE | 2017-11-08 17:58 | CP.PCM.CON ---
History of Present Illness - History of Present Illness History of Present Illness: Chart reviewed and imaging perused 62 year old admitted with palpitations and atrial flutter Past medical history significant for systemic hypertension hyperlipidemia and atrial fibrillation EKG showed atrial flutter likely 'atypical' left side he is likely a candidate for anticoagulation unless contraindications exist Currently rate controlled The underlying myocardial substrate eliciting the arrhythmia is likely hyperteve heart disease Suggest Exclude coronary disease given chest pain and dyspnea Thyroid function Echocardiogram ?ablation Past Patient History - Infectious Disease Hx of Infectious Diseases: None - Past Medical History & Family History Past Medical History?: Yes - Past Social History Smoking Status: Never Smoked - CARDIAC Hx Cardiac Disorders: Yes Hx Hypertension: Yes - PULMONARY Hx Respiratory Disorders: No Hx Emphysema: No - NEUROLOGICAL Hx Neurological Disorder: No - HEENT Hx HEENT Problems: No - RENAL Hx Chronic Kidney Disease: No - ENDOCRINE/METABOLIC Hx Endocrine Disorders: Yes Hx Diabetes Mellitus Type 2: Yes - HEMATOLOGICAL/ONCOLOGICAL Hx Blood Disorders: No - INTEGUMENTARY Hx Dermatological Problems: No - MUSCULOSKELETAL/RHEUMATOLOGICAL Hx Musculoskeletal Disorders: No Hx Falls: No - GASTROINTESTINAL Hx Gastrointestinal Disorders: No - GENITOURINARY/GYNECOLOGICAL Hx Genitourinary Disorders: No - PSYCHIATRIC Hx Psychophysiologic Disorder: No Hx Substance Use: No - SURGICAL HISTORY Hx Surgeries: Yes Hx Coronary Stent: Yes - ANESTHESIA Hx Anesthesia: Yes Hx Anesthesia Reactions: No Hx Malignant Hyperthermia: No Meds Allergies/Adverse Reactions: Allergies Allergy/AdvReac Type Severity Reaction Status Date / Time No Known Allergies Allergy Verified 11/07/17 17:16 - Medications Medications: Current Medications Aspirin (Aspirin Chewable) 81 mg PO DAILY [facility] Last Admin: 11/08/17 09:45 Dose: 81 mg Enoxaparin Sodium (Lovenox) 70 mg SC Q12H [facility] Lisinopril (Zestril) 5 mg PO DAILY [facility] Last Admin: 11/08/17 09:45 Dose: 5 mg Metoprolol Tartrate (Lopressor) 12.5 mg PO DAILY [facility] Last Admin: 11/08/17 09:45 Dose: 12.5 mg Pantoprazole Sodium (Protonix Ec Tab) 40 mg PO DAILY [facility] Pneumococcal Polyvalent Vaccine (Pneumovax 23 Vaccine) 0.5 ml IM .ONCE ONE Stop: 11/10/17 10:01 Rosuvastatin Calcium (Crestor) 20 mg PO [facility] Tamsulosin HCl (Flomax) 0.4 mg PO DAILY [facility] Last Admin: 11/08/17 09:45 Dose: 0.4 mg Results - Vital Signs Recent Vital Signs: Last Vital Signs Temp 98.2 F 11/08/17 16:00 Pulse 80 11/08/17 16:00 Resp 20 11/08/17 16:00 BP 94/55 L 11/08/17 16:00 Pulse Ox 95 11/08/17 16:00 - Labs Result Diagrams: 11/07/17 18:10 11/07/17 18:10 Labs: Laboratory Results - last 24 hr 11/07/17 11/07/17 11/07/17 18:05 18:10 18:10 WBC 6.0 RBC 4.72 Hgb 14.0 Hct 41.5 MCV 88.0 MCH 29.7 MCHC 33.7 RDW 13.1 Plt Count 195 MPV 9.8 Neut % (Auto) 49.2 L Lymph % (Auto) 38.3 [place] % (Auto) 8.9 Eos % (Auto) 2.6 Baso % (Auto) 1.0 Neut # 3.0 Lymph # 2.3 [place] # 0.5 Eos # 0.2 Baso # 0.1 PT INR APTT Sodium 140 Potassium 4.1 Chloride 105 Carbon Dioxide 28 Anion Gap 12 BUN 13 Creatinine 1.0 Est GFR ( Amer) > 60 Est GFR (Non-Af Amer) > 60 POC Glucose (mg/dL) 105 Random Glucose 112 H Calcium 9.0 Total Bilirubin 0.6 AST 28 ALT 47 Alkaline Phosphatase 55 Total Creatine Kinase 99 CK-MB (Mass) 0.70 Troponin I 0.0420 Total Protein 8.5 H Albumin 4.2 Globulin 4.3 H Albumin/Globulin Ratio 1.0 TSH 3rd Generation 0.93 11/07/17 11/08/17 11/08/17 18:10 02:58 06:17 WBC RBC Hgb Hct MCV MCH MCHC RDW Plt Count MPV Neut % (Auto) Lymph % (Auto) [place] % (Auto) Eos % (Auto) Baso % (Auto) Neut # Lymph # [place] # Eos # Baso # PT 11.1 INR 1.0 APTT 29 Sodium Potassium Chloride Carbon Dioxide Anion Gap BUN Creatinine Est GFR ( Amer) Est GFR (Non-Af Amer) POC Glucose (mg/dL) 125 H 124 H Random Glucose Calcium Total Bilirubin AST ALT Alkaline Phosphatase Total Creatine Kinase CK-MB (Mass) Troponin I Total Protein Albumin Globulin Albumin/Globulin Ratio TSH 3rd Generation 11/08/17 11/08/17 11:10 16:27 WBC RBC Hgb Hct MCV MCH MCHC RDW Plt Count MPV Neut % (Auto) Lymph % (Auto) [place] % (Auto) Eos % (Auto) Baso % (Auto) Neut # Lymph # [place] # Eos # Baso # PT INR APTT Sodium Potassium Chloride Carbon Dioxide Anion Gap BUN Creatinine Est GFR ( Amer) Est GFR (Non-Af Amer) POC Glucose (mg/dL) 140 H 208 H Random Glucose Calcium Total Bilirubin AST ALT Alkaline Phosphatase Total Creatine Kinase CK-MB (Mass) Troponin I Total Protein Albumin Globulin Albumin/Globulin Ratio TSH 3rd Generation Assessment & Plan - Assessment and Plan (Free Text) Assessment: 62 year old admitted with palpitations and atrial flutter Past medical history significant for systemic hypertension hyperlipidemia and atrial fibrillation EKG showed atrial flutter likely 'atypical' left side he is likely a candidate for anticoagulation unless contraindications exist Currently rate controlled The underlying myocardial substrate eliciting the arrhythmia is likely hyperteve heart disease Suggest Exclude coronary disease given chest pain and dyspnea Thyroid function Echocardiogram ?ablation Plan: see above
[2017-11-08] MEDS: Enoxaparin 80 mg Syringe SC SCH (19:00)
--- NOTE | 2017-11-08 19:37 | CP.PCM.PN ---
Subjective - Date & Time of Evaluation Date of Evaluation: 11/08/17 Time of Evaluation: 13:00 - Subjective Subjective: clinically same Objective - Vital Signs/Intake and Output Vital Signs (last 24 hours): Temp Pulse Resp BP Pulse Ox 98.2 F 80 20 94/55 L 95 11/08/17 16:00 11/08/17 16:00 11/08/17 16:00 11/08/17 16:00 11/08/17 16:00 Intake and Output: 11/08/17 11/09/17 18:59 06:59 Intake Total 480 Balance 480 - Medications Medications: Current Medications Aspirin (Aspirin Chewable) 81 mg PO DAILY [facility] Last Admin: 11/08/17 09:45 Dose: 81 mg Enoxaparin Sodium (Lovenox) 70 mg SC Q12H [facility] Lisinopril (Zestril) 5 mg PO DAILY [facility] Last Admin: 11/08/17 09:45 Dose: 5 mg Metoprolol Tartrate (Lopressor) 12.5 mg PO DAILY [facility] Last Admin: 11/08/17 09:45 Dose: 12.5 mg Pantoprazole Sodium (Protonix Ec Tab) 40 mg PO DAILY [facility] Pneumococcal Polyvalent Vaccine (Pneumovax 23 Vaccine) 0.5 ml IM .ONCE ONE Stop: 11/10/17 10:01 Rosuvastatin Calcium (Crestor) 20 mg PO [facility] Tamsulosin HCl (Flomax) 0.4 mg PO DAILY [facility] Last Admin: 11/08/17 09:45 Dose: 0.4 mg - Labs Labs: 11/07/17 18:10 11/07/17 18:10 PT 11.1 SECONDS (9.7-12.2) 11/07/17 18:10 INR 1.0 11/07/17 18:10 APTT 29 SECONDS (21-34) 11/07/17 18:10 - Constitutional Appears: Well - Head Exam Head Exam: ATRAUMATIC, NORMAL INSPECTION, NORMOCEPHALIC - Eye Exam Eye Exam: EOMI, Normal appearance, PERRL Pupil Exam: NORMAL ACCOMODATION, PERRL - ENT Exam ENT Exam: Mucous Membranes Moist, Normal Exam - Neck Exam Neck Exam: Full ROM, Normal Inspection. absent: Lymphadenopathy - Respiratory Exam Respiratory Exam: Decreased Breath Sounds - Cardiovascular Exam Cardiovascular Exam: REGULAR RHYTHM, +S1, +S2 - GI/Abdominal Exam GI & Abdominal Exam: Soft, Diminished Bowel Sounds - Rectal Exam Rectal Exam: Deferred Assessment and Plan (1) Atrial flutter Status: Acute (2) Atrial flutter with rapid ventricular response Status: Acute (3) Chest pain Status: Acute (4) Dizziness Status: Acute (5) Dyspnea Status: Acute (6) New onset atrial fibrillation Status: Acute (7) Palpitations Status: Acute (8) CAD (coronary artery disease) Status: Chronic (9) Diabetes mellitus Status: Chronic (10) HLD (hyperlipidemia) Status: Chronic (11) HTN (hypertension) Status: Chronic - Assessment and Plan (Free Text) Plan: Patient examined. Patient better. Cardiac reference done. Advised thyroid function, echocardiogram. Continue aspirin, metoprolol, lisinopril. Continue supportive care.
--- NOTE | 2017-11-08 19:50 | CP.PCM.CON ---
History of Present Illness - History of Present Illness History of Present Illness: 62 Male with hx of CAD s/p stents, HTN admitted for A flutter TSH Normal trops negative will check stress test Saturday If negative will plan cardioversion and ablation by Dr. Stoll Will follow Past Patient History - Infectious Disease Hx of Infectious Diseases: None - Past Medical History & Family History Past Medical History?: Yes - Past Social History Smoking Status: Never Smoked - CARDIAC Hx Cardiac Disorders: Yes Hx Hypertension: Yes - PULMONARY Hx Respiratory Disorders: No Hx Emphysema: No - NEUROLOGICAL Hx Neurological Disorder: No - HEENT Hx HEENT Problems: No - RENAL Hx Chronic Kidney Disease: No - ENDOCRINE/METABOLIC Hx Endocrine Disorders: Yes Hx Diabetes Mellitus Type 2: Yes - HEMATOLOGICAL/ONCOLOGICAL Hx Blood Disorders: No - INTEGUMENTARY Hx Dermatological Problems: No - MUSCULOSKELETAL/RHEUMATOLOGICAL Hx Musculoskeletal Disorders: No Hx Falls: No - GASTROINTESTINAL Hx Gastrointestinal Disorders: No - GENITOURINARY/GYNECOLOGICAL Hx Genitourinary Disorders: No - PSYCHIATRIC Hx Psychophysiologic Disorder: No Hx Substance Use: No - SURGICAL HISTORY Hx Surgeries: Yes Hx Coronary Stent: Yes - ANESTHESIA Hx Anesthesia: Yes Hx Anesthesia Reactions: No Hx Malignant Hyperthermia: No Meds Allergies/Adverse Reactions: Allergies Allergy/AdvReac Type Severity Reaction Status Date / Time No Known Allergies Allergy Verified 11/07/17 17:16 - Medications Medications: Current Medications Aspirin (Aspirin Chewable) 81 mg PO DAILY [facility] Last Admin: 11/08/17 09:45 Dose: 81 mg Enoxaparin Sodium (Lovenox) 70 mg SC Q12H [facility] Lisinopril (Zestril) 5 mg PO DAILY [facility] Last Admin: 11/08/17 09:45 Dose: 5 mg Metoprolol Tartrate (Lopressor) 12.5 mg PO DAILY [facility] Last Admin: 11/08/17 09:45 Dose: 12.5 mg Pantoprazole Sodium (Protonix Ec Tab) 40 mg PO DAILY [facility] Pneumococcal Polyvalent Vaccine (Pneumovax 23 Vaccine) 0.5 ml IM .ONCE ONE Stop: 11/10/17 10:01 Rosuvastatin Calcium (Crestor) 20 mg PO [facility] Tamsulosin HCl (Flomax) 0.4 mg PO DAILY [facility] Last Admin: 11/08/17 09:45 Dose: 0.4 mg Results - Vital Signs Recent Vital Signs: Last Vital Signs Temp 98.2 F 11/08/17 16:00 Pulse 80 11/08/17 16:00 Resp 20 11/08/17 16:00 BP 94/55 L 11/08/17 16:00 Pulse Ox 95 11/08/17 16:00 - Labs Result Diagrams: 11/07/17 18:10 11/07/17 18:10 Labs: Laboratory Results - last 24 hr 11/08/17 11/08/17 11/08/17 02:58 06:17 11:10 POC Glucose (mg/dL) 125 H 124 H 140 H 11/08/17 16:27 POC Glucose (mg/dL) 208 H
[2017-11-09] MEDS: Enoxaparin 80 mg Syringe SC SCH ×2 (05:28→17:02)
[2017-11-09] MEDS: Pantoprazole 40 mg EC Tab PO SCH (09:13)
[2017-11-09] MEDS ORDERED: Influenza Vaccine 60 mcg/0.5 mL SYR (4YR UP) IM ONE (10:00)
--- NOTE | 2017-11-09 16:02 | CP.PCM.PN ---
Subjective - Date & Time of Evaluation Date of Evaluation: 11/09/17 Time of Evaluation: 11:40 - Subjective Subjective: clinically same Objective - Vital Signs/Intake and Output Vital Signs (last 24 hours): Temp Pulse Resp BP Pulse Ox 97.2 F L 69 20 115/82 95 11/09/17 08:53 11/09/17 08:53 11/09/17 08:53 11/09/17 08:53 11/09/17 08:53 Intake and Output: 11/09/17 11/09/17 06:59 18:59 Intake Total 550 480 Balance 550 480 - Medications Medications: Current Medications Aspirin (Aspirin Chewable) 81 mg PO DAILY [facility] Last Admin: 11/09/17 09:13 Dose: 81 mg Enoxaparin Sodium (Lovenox) 70 mg SC Q12H [facility] Last Admin: 11/09/17 05:28 Dose: 70 mg Lisinopril (Zestril) 5 mg PO DAILY [facility] Last Admin: 11/09/17 09:13 Dose: 5 mg Metoprolol Tartrate (Lopressor) 12.5 mg PO DAILY [facility] Last Admin: 11/09/17 09:13 Dose: 12.5 mg Pantoprazole Sodium (Protonix Ec Tab) 40 mg PO DAILY [facility] Last Admin: 11/09/17 09:13 Dose: 40 mg Pneumococcal Polyvalent Vaccine (Pneumovax 23 Vaccine) 0.5 ml IM .ONCE ONE Stop: 11/10/17 10:01 Rosuvastatin Calcium (Crestor) 20 mg PO HS [facility] Last Admin: 11/08/17 21:45 Dose: 20 mg Tamsulosin HCl (Flomax) 0.4 mg PO DAILY [facility] Last Admin: 11/09/17 09:13 Dose: 0.4 mg - Labs Labs: 11/07/17 18:10 11/07/17 18:10 PT 11.1 SECONDS (9.7-12.2) 11/07/17 18:10 INR 1.0 11/07/17 18:10 APTT 29 SECONDS (21-34) 11/07/17 18:10 - Constitutional Appears: Well - Head Exam Head Exam: ATRAUMATIC, NORMAL INSPECTION, NORMOCEPHALIC - Eye Exam Eye Exam: EOMI, Normal appearance, PERRL Pupil Exam: NORMAL ACCOMODATION, PERRL - ENT Exam ENT Exam: Mucous Membranes Moist, Normal Exam - Neck Exam Neck Exam: Full ROM, Normal Inspection. absent: Lymphadenopathy - Respiratory Exam Respiratory Exam: Decreased Breath Sounds - Cardiovascular Exam Cardiovascular Exam: REGULAR RHYTHM, +S1, +S2 - GI/Abdominal Exam GI & Abdominal Exam: Soft, Diminished Bowel Sounds - Rectal Exam Rectal Exam: Deferred Assessment and Plan (1) Atrial flutter Status: Acute (2) Atrial flutter with rapid ventricular response Status: Acute (3) Chest pain Status: Acute (4) Dizziness Status: Acute (5) Dyspnea Status: Acute (6) New onset atrial fibrillation Status: Acute (7) Palpitations Status: Acute (8) CAD (coronary artery disease) Status: Chronic (9) Diabetes mellitus Status: Chronic (10) HLD (hyperlipidemia) Status: Chronic (11) HTN (hypertension) Status: Chronic - Assessment and Plan (Free Text) Plan: Patient examined. TSH is normal, troponin is negative. Stress test on Saturday. Continue aspirin, metoprolol and lisinopril. Continue supportive care.
--- NOTE | 2017-11-09 23:09 | CARD ---
APPROVED REPORT EKG Measurement Heart [id number] P74 [id number] <Conclusion> Atrial fibrillation with premature ventricular or aberrantly conducted complexes Abnormal ECG
[2017-11-10] MEDS: Enoxaparin 80 mg Syringe SC SCH ×2 (05:51→18:23)
[2017-11-10] MEDS ORDERED: Pneumococcal 23-Valent Vaccine IM ONE (10:00)
[2017-11-10] MEDS: Pantoprazole 40 mg EC Tab PO SCH (10:23)
--- NOTE | 2017-11-10 16:53 | CP.PCM.PN ---
Subjective - Date & Time of Evaluation Date of Evaluation: 11/10/17 Time of Evaluation: 12:20 - Subjective Subjective: clinically same Objective - Vital Signs/Intake and Output Vital Signs (last 24 hours): Temp Pulse Resp BP Pulse Ox 98.1 F 61 18 113/81 96 11/10/17 15:20 11/10/17 15:20 11/10/17 15:20 11/10/17 15:20 11/10/17 16:49 Intake and Output: 11/10/17 11/10/17 06:59 18:59 Intake Total 550 Balance 550 - Medications Medications: Current Medications Aspirin (Aspirin Chewable) 81 mg PO DAILY [facility] Last Admin: 11/10/17 10:23 Dose: 81 mg Enoxaparin Sodium (Lovenox) 70 mg SC Q12H [facility] Last Admin: 11/10/17 05:51 Dose: 70 mg Lisinopril (Zestril) 5 mg PO DAILY [facility] Last Admin: 11/10/17 10:24 Dose: 5 mg Metoprolol Tartrate (Lopressor) 12.5 mg PO DAILY [facility] Pantoprazole Sodium (Protonix Ec Tab) 40 mg PO DAILY [facility] Last Admin: 11/10/17 10:23 Dose: 40 mg Rosuvastatin Calcium (Crestor) 20 mg PO HS [facility] Last Admin: 11/09/17 21:01 Dose: 20 mg Tamsulosin HCl (Flomax) 0.4 mg PO DAILY [facility] Last Admin: 11/10/17 10:24 Dose: 0.4 mg - Labs Labs: 11/07/17 18:10 11/07/17 18:10 PT 11.1 SECONDS (9.7-12.2) 11/07/17 18:10 INR 1.0 11/07/17 18:10 APTT 29 SECONDS (21-34) 11/07/17 18:10 - Constitutional Appears: Well - Head Exam Head Exam: ATRAUMATIC, NORMAL INSPECTION, NORMOCEPHALIC - Eye Exam Eye Exam: EOMI, Normal appearance, PERRL Pupil Exam: NORMAL ACCOMODATION, PERRL - ENT Exam ENT Exam: Mucous Membranes Moist, Normal Exam - Neck Exam Neck Exam: Full ROM, Normal Inspection. absent: Lymphadenopathy - Respiratory Exam Respiratory Exam: Decreased Breath Sounds - Cardiovascular Exam Cardiovascular Exam: REGULAR RHYTHM, +S1, +S2 - GI/Abdominal Exam GI & Abdominal Exam: Soft, Diminished Bowel Sounds - Rectal Exam Rectal Exam: Deferred Assessment and Plan (1) Atrial flutter Status: Acute (2) Atrial flutter with rapid ventricular response Status: Acute (3) Chest pain Status: Acute (4) Dizziness Status: Acute (5) Dyspnea Status: Acute (6) New onset atrial fibrillation Status: Acute (7) Palpitations Status: Acute (8) CAD (coronary artery disease) Status: Chronic (9) Diabetes mellitus Status: Chronic (10) HLD (hyperlipidemia) Status: Chronic (11) HTN (hypertension) Status: Chronic - Assessment and Plan (Free Text) Plan: Patient examined. Patient is better. No palpitations. Continue aspirin and antihypertensive medications. Supportive care.
--- NOTE | 2017-11-10 21:50 | CP.PCM.PN ---
Subjective - Date & Time of Evaluation Date of Evaluation: 11/10/17 Time of Evaluation: 09:20 - Subjective Subjective: Covering for Dr Crespo. 64 y/o man presented w/ hx of CAD s/p multiple stents. Now presenting w/ chest pain and new onset A. flutter Objective - Vital Signs/Intake and Output Vital Signs (last 24 hours): Temp Pulse Resp BP Pulse Ox 98.1 F 63 18 113/81 96 11/10/17 15:20 11/10/17 16:00 11/10/17 15:20 11/10/17 15:20 11/10/17 16:49 - Medications Medications: Current Medications Aspirin (Aspirin Chewable) 81 mg PO DAILY [facility] Last Admin: 11/10/17 10:23 Dose: 81 mg Enoxaparin Sodium (Lovenox) 70 mg SC Q12H [facility] Last Admin: 11/10/17 18:23 Dose: 70 mg Lisinopril (Zestril) 5 mg PO DAILY [facility] Last Admin: 11/10/17 10:24 Dose: 5 mg Metoprolol Tartrate (Lopressor) 12.5 mg PO DAILY [facility] Pantoprazole Sodium (Protonix Ec Tab) 40 mg PO DAILY [facility] Last Admin: 11/10/17 10:23 Dose: 40 mg Rosuvastatin Calcium (Crestor) 20 mg PO HS [facility] Last Admin: 11/10/17 21:20 Dose: 20 mg Tamsulosin HCl (Flomax) 0.4 mg PO DAILY [facility] Last Admin: 11/10/17 10:24 Dose: 0.4 mg - Labs Labs: 11/07/17 18:10 11/07/17 18:10 PT 11.1 SECONDS (9.7-12.2) 11/07/17 18:10 INR 1.0 11/07/17 18:10 APTT 29 SECONDS (21-34) 11/07/17 18:10 - Constitutional Appears: Non-toxic - Head Exam Head Exam: NORMAL INSPECTION - Eye Exam Eye Exam: Scleral icterus - Neck Exam Neck Exam: Full ROM. absent: Lymphadenopathy - Respiratory Exam Respiratory Exam: Clear to Ausculation Bilateral - Cardiovascular Exam Cardiovascular Exam: REGULAR RHYTHM - GI/Abdominal Exam GI & Abdominal Exam: Soft. absent: Organomegaly - Extremities Exam Extremities Exam: Calf Tenderness. absent: Pedal Edema - Neurological Exam Neurological Exam: Alert, Oriented x3 Assessment and Plan - Assessment and Plan (Free Text) Assessment: New onset A. flutter CAD HTN Plan: Lexiscan ECHO Anticoagulation
[2017-11-11] MEDS: Enoxaparin 80 mg Syringe SC SCH ×2 (05:52→17:51)
--- NOTE | 2017-11-11 07:02 | CP.PCM.PN ---
Subjective - Date & Time of Evaluation Date of Evaluation: 11/11/17 Time of Evaluation: 07:01 - Subjective Subjective: Events noted Reviewed telemetry and consult inputs Objective - Vital Signs/Intake and Output Vital Signs (last 24 hours): Temp Pulse Resp BP Pulse Ox 97.8 F 61 20 113/71 95 11/10/17 23:20 11/11/17 04:39 11/10/17 23:20 11/10/17 23:20 11/10/17 23:20 - Medications Medications: Current Medications Aspirin (Aspirin Chewable) 81 mg PO DAILY [facility] Last Admin: 11/10/17 10:23 Dose: 81 mg Enoxaparin Sodium (Lovenox) 70 mg SC Q12H [facility] Last Admin: 11/11/17 05:52 Dose: 70 mg Lisinopril (Zestril) 5 mg PO DAILY [facility] Last Admin: 11/10/17 10:24 Dose: 5 mg Metoprolol Tartrate (Lopressor) 12.5 mg PO DAILY [facility] Pantoprazole Sodium (Protonix Ec Tab) 40 mg PO DAILY [facility] Last Admin: 11/10/17 10:23 Dose: 40 mg Rosuvastatin Calcium (Crestor) 20 mg PO HS [facility] Last Admin: 11/10/17 21:20 Dose: 20 mg Tamsulosin HCl (Flomax) 0.4 mg PO DAILY [facility] Last Admin: 11/10/17 10:24 Dose: 0.4 mg - Labs Labs: 11/07/17 18:10 11/07/17 18:10 PT 11.1 SECONDS (9.7-12.2) 11/07/17 18:10 INR 1.0 11/07/17 18:10 APTT 29 SECONDS (21-34) 11/07/17 18:10 Assessment and Plan - Assessment and Plan (Free Text) Assessment: New onset atrial flutter likely hypertensive heart disease A candidate for anticoagulation Suggest Echocardiogram Possible Ablation saturday at [facility]
[2017-11-11] MEDS: Pantoprazole 40 mg EC Tab PO SCH ×2 (09:30→12:09)
[2017-11-11] MEDS ORDERED: Aminophylline 25 mg/ml Inj ONE (09:31)
--- NOTE | 2017-11-11 19:03 | CP.PCM.PN ---
Subjective - Date & Time of Evaluation Date of Evaluation: 11/11/17 Time of Evaluation: 10:40 - Subjective Subjective: clinically same Objective - Vital Signs/Intake and Output Vital Signs (last 24 hours): Temp Pulse Resp BP Pulse Ox 97.6 F 58 L 20 104/68 96 11/11/17 15:00 11/11/17 15:00 11/11/17 15:00 11/11/17 15:00 11/11/17 15:00 - Medications Medications: Current Medications Aspirin (Aspirin Chewable) 81 mg PO DAILY [facility] Last Admin: 11/11/17 12:09 Dose: 81 mg Lisinopril (Zestril) 5 mg PO DAILY [facility] Last Admin: 11/11/17 12:08 Dose: 5 mg Metoprolol Tartrate (Lopressor) 12.5 mg PO DAILY [facility] Last Admin: 11/11/17 12:08 Dose: 12.5 mg Pantoprazole Sodium (Protonix Ec Tab) 40 mg PO DAILY [facility] Last Admin: 11/11/17 12:09 Dose: 40 mg Rosuvastatin Calcium (Crestor) 20 mg PO [facility] Last Admin: 11/10/17 21:20 Dose: 20 mg Tamsulosin HCl (Flomax) 0.4 mg PO DAILY [facility] Last Admin: 11/11/17 12:09 Dose: 0.4 mg - Labs Labs: 11/07/17 18:10 11/07/17 18:10 PT 11.1 SECONDS (9.7-12.2) 11/07/17 18:10 INR 1.0 11/07/17 18:10 APTT 29 SECONDS (21-34) 11/07/17 18:10 - Constitutional Appears: Well - Head Exam Head Exam: ATRAUMATIC, NORMAL INSPECTION, NORMOCEPHALIC - Eye Exam Eye Exam: EOMI, Normal appearance, PERRL Pupil Exam: NORMAL ACCOMODATION, PERRL - ENT Exam ENT Exam: Mucous Membranes Moist, Normal Exam - Neck Exam Neck Exam: Full ROM, Normal Inspection. absent: Lymphadenopathy - Respiratory Exam Respiratory Exam: Decreased Breath Sounds - Cardiovascular Exam Cardiovascular Exam: REGULAR RHYTHM, +S1, +S2 - GI/Abdominal Exam GI & Abdominal Exam: Soft, Diminished Bowel Sounds - Rectal Exam Rectal Exam: Deferred Assessment and Plan (1) Atrial flutter Status: Acute (2) Atrial flutter with rapid ventricular response Status: Acute (3) Chest pain Status: Acute (4) Dizziness Status: Acute (5) Dyspnea Status: Acute (6) New onset atrial fibrillation Status: Acute (7) Palpitations Status: Acute (8) CAD (coronary artery disease) Status: Chronic (9) Diabetes mellitus Status: Chronic (10) HLD (hyperlipidemia) Status: Chronic (11) HTN (hypertension) Status: Chronic - Assessment and Plan (Free Text) Plan: Patient examined. Events noted on telemetry. Cardiac nuclear scan suggestive of normal left ventricular function. Cardiology advised possible ablation on Saturday.
--- NOTE | 2017-11-11 23:02 | CARD ---
APPROVED REPORT Protocol: PHARMACOLOGICAL STRESS Test Type: LEXISCAN Test Indications: CHEST PAIN Medications: LIST SCAN Medical History: CHEST PAIN,DYSPNEA,PALPATATIONS,ATRIAL FLUTTER Target HR: 157 bpm Resting ECG: NSR W/ NS ST T CHANGES Resting Heart Rate: 56 bpm Resting Blood Pressure: 120/70mmHg submaximum (85%): 133 bpm TEST SUMMARY [id number]/70.0. INFUSIONDOSE 100:300.00.01.063/.1. [id number]:040.00..276003/70.0. PROCEDURE Pharmacologic stress testing was performed using 0.4mg per 5ml of regadenoson given intravenously over 7-10 seconds. Reversal agent aminophyline 125 mg, given intravenously for Nausea. POST EXERCISE Reason for Termination: Protocol Completed Target HR: No Max HR: 63 bpm 56% of Maximum Predicted HR: 157 bpm Exercise duration: 00:30 min:sec, 0 Stage Exercise capacity: 1.0METs Max Blood Pressure: 148/70mmHg Blood Pressure response to exercise: normal resting BP - appropriate response Heart Rate response to exercise: appropriate Chest Pain: No, none Angina index: 0 Arrhythmia: No, none ST Change: No, none FROM BASELINE Deviation: 0 mm INTERPRETATION Stress EKG Conclusion: NEGATIVE LEXISCAN STRESS TEST NORMAL BP RESPONSE TO LEXISCAN NUCLEAR STUDIES TO BE READ SEPARATELY EXAM: Myocardial Perfusion REST/STRESS Imaging Protocol The imaging protocol used to acquire images was Rest Tc-99m/stress Tc-99m 1 day Rest Spect myocardial perfusion imaging was performed in supine position 45 minutes following the injection of 12.6 mCi of Tc-99 Myoview. Gated Stress Spect was performed 45 minutes after intravenous 32.3 mCi Tc-99 Myoview injection. The images were gated to evaluate regional wall motion and calculate ventricular ejection fraction.Images were reconstructed using backfilter projection method in short horizontal and verticle long axis. Spect slices were generated. RESTING DATA EDV95.00dvGV8.50L/min ESV30.00mlMyocardial Falq199.00g Av. Heart Rate54.00bpm EF68.00% STRESS DATA EDV94.26chBY5.10L/min ESV28.00mlMyocardial Medh834.00g EF70.00% Regional WT score at stress:1.00 Regional WM score at stress:0.00 Summed WT score at stress:7.00 Av. Heart Rate62.00bpmSummed WM score at stress:0.00 LV Perf. Quant 17 Seg. SSS2.00 17 Seg. SRS1.00 17 Seg. SDS1.00 Stress Defect Extent (% LAD)0.00Rest Defect Extent (% LAD)0.00Rev. Defect Extent (% LAD)0.00 Stress Defect Extent (% LCX)20.00Rest Defect Extent (% LCX)5.00Rev. Defect Extent (% LCX)1.30 Stress Defect Extent (% RCA)0.00Rest Defect Extent (% RCA)0.00Rev. Defect Extent (% RCA)0.00 Stress Defect Extent (% PAM)3.50Rest Defect Extent (% PAM)0.90Rev. Defect Extent (% PAM)0.20 IMPRESSION Normal Myocardial Perfusion exercise stress study Left Ventricle LV Size/Shape: The left ventricle is normal size. LV Function:Left ventricle systolic function is normal. The Ejection Fraction is 65-70%. Regional Wall Motion:There is normal left ventricular wall motion. Metabolism/Perfusion Defects: There is no scan evidence of reversible ischemia noted. Conclusion 1. There is no scan evidence of reversible ischemia noted. 2. Left ventricle systolic function is normal. 3. The Ejection Fraction is 65-70%.
[2017-11-12] MEDS: Pantoprazole 40 mg EC Tab PO SCH (09:33)
--- NOTE | 2017-11-12 18:36 | CP.PCM.PN ---
Subjective - Date & Time of Evaluation Date of Evaluation: 11/12/17 Time of Evaluation: 11:40 - Subjective Subjective: clinically same Objective - Vital Signs/Intake and Output Vital Signs (last 24 hours): Temp Pulse Resp BP Pulse Ox 97.7 F 60 18 114/71 95 11/12/17 16:00 11/12/17 16:00 11/12/17 16:00 11/12/17 16:00 11/12/17 16:00 Intake and Output: 11/12/17 11/12/17 06:59 18:59 Intake Total 480 Output Total 0 Balance 480 - Medications Medications: Current Medications Aspirin (Aspirin Chewable) 81 mg PO DAILY [facility] Last Admin: 11/12/17 09:32 Dose: 81 mg Lisinopril (Zestril) 5 mg PO DAILY [facility] Last Admin: 11/12/17 09:33 Dose: 5 mg Metoprolol Tartrate (Lopressor) 12.5 mg PO DAILY [facility] Last Admin: 11/12/17 09:32 Dose: 12.5 mg Pantoprazole Sodium (Protonix Ec Tab) 40 mg PO DAILY [facility] Last Admin: 11/12/17 09:33 Dose: 40 mg Rosuvastatin Calcium (Crestor) 20 mg PO HS [facility] Last Admin: 11/11/17 21:27 Dose: 20 mg Tamsulosin HCl (Flomax) 0.4 mg PO DAILY [facility] Last Admin: 11/12/17 09:33 Dose: 0.4 mg - Labs Labs: 11/07/17 18:10 11/07/17 18:10 PT 11.1 SECONDS (9.7-12.2) 11/07/17 18:10 INR 1.0 11/07/17 18:10 APTT 29 SECONDS (21-34) 11/07/17 18:10 - Constitutional Appears: Well - Head Exam Head Exam: ATRAUMATIC, NORMAL INSPECTION, NORMOCEPHALIC - Eye Exam Eye Exam: EOMI, Normal appearance, PERRL Pupil Exam: NORMAL ACCOMODATION, PERRL - ENT Exam ENT Exam: Mucous Membranes Moist, Normal Exam - Neck Exam Neck Exam: Full ROM, Normal Inspection. absent: Lymphadenopathy - Respiratory Exam Respiratory Exam: Decreased Breath Sounds - Cardiovascular Exam Cardiovascular Exam: REGULAR RHYTHM, +S1, +S2 - GI/Abdominal Exam GI & Abdominal Exam: Soft, Diminished Bowel Sounds - Rectal Exam Rectal Exam: Deferred Assessment and Plan (1) Atrial flutter Status: Acute (2) Atrial flutter with rapid ventricular response Status: Acute (3) Chest pain Status: Acute (4) Dizziness Status: Acute (5) Dyspnea Status: Acute (6) New onset atrial fibrillation Status: Acute (7) Palpitations Status: Acute (8) CAD (coronary artery disease) Status: Chronic (9) Diabetes mellitus Status: Chronic (10) HLD (hyperlipidemia) Status: Chronic (11) HTN (hypertension) Status: Chronic - Assessment and Plan (Free Text) Plan: Patient examined. Patient better. Plan ablation. Continue metoprolol, lisinopril and aspirin. Continue supportive care.
--- NOTE | 2017-11-12 23:45 | CP.PCM.PN ---
Subjective - Date & Time of Evaluation Date of Evaluation: 11/12/17 Time of Evaluation: 15:20 - Subjective Subjective: Patient comfortable For A flutter ablation Saturday Objective - Vital Signs/Intake and Output Vital Signs (last 24 hours): Temp Pulse Resp BP Pulse Ox 97.7 F 60 18 114/71 95 11/12/17 16:00 11/12/17 16:00 11/12/17 16:00 11/12/17 16:00 11/12/17 16:00 Intake and Output: 11/12/17 11/13/17 18:59 06:59 Intake Total 480 300 Output Total 0 Balance 480 300 - Medications Medications: Current Medications Aspirin (Aspirin Chewable) 81 mg PO DAILY [facility] Last Admin: 11/12/17 09:32 Dose: 81 mg Lisinopril (Zestril) 5 mg PO DAILY [facility] Last Admin: 11/12/17 09:33 Dose: 5 mg Metoprolol Tartrate (Lopressor) 12.5 mg PO DAILY [facility] Last Admin: 11/12/17 09:32 Dose: 12.5 mg Pantoprazole Sodium (Protonix Ec Tab) 40 mg PO DAILY [facility] Last Admin: 11/12/17 09:33 Dose: 40 mg Rosuvastatin Calcium (Crestor) 20 mg PO HS [facility] Last Admin: 11/12/17 21:45 Dose: 20 mg Tamsulosin HCl (Flomax) 0.4 mg PO DAILY [facility] Last Admin: 11/12/17 09:33 Dose: 0.4 mg - Labs Labs: 11/07/17 18:10 11/07/17 18:10 PT 11.1 SECONDS (9.7-12.2) 11/07/17 18:10 INR 1.0 11/07/17 18:10 APTT 29 SECONDS (21-34) 11/07/17 18:10
[2017-11-13 01:16] VITALS: RESP 20
[2017-11-13] MEDS: Pantoprazole 40 mg EC Tab PO SCH (11:12)
--- NOTE | 2017-11-13 19:40 | CP.PCM.PN ---
Subjective - Date & Time of Evaluation Date of Evaluation: 11/13/17 Time of Evaluation: 09:40 - Subjective Subjective: clinically same Objective - Vital Signs/Intake and Output Vital Signs (last 24 hours): Temp Pulse Resp BP Pulse Ox 98.1 F 53 L 20 108/69 97 11/13/17 08:24 11/13/17 08:24 11/13/17 08:24 11/13/17 08:24 11/13/17 08:24 - Medications Medications: Current Medications Aspirin (Aspirin Chewable) 81 mg PO DAILY [facility] Last Admin: 11/13/17 11:11 Dose: Not Given Lisinopril (Zestril) 5 mg PO DAILY [facility] Last Admin: 11/13/17 11:12 Dose: Not Given Metoprolol Tartrate (Lopressor) 12.5 mg PO DAILY [facility] Last Admin: 11/13/17 11:11 Dose: Not Given Pantoprazole Sodium (Protonix Ec Tab) 40 mg PO DAILY [facility] Last Admin: 11/13/17 11:12 Dose: Not Given Rosuvastatin Calcium (Crestor) 20 mg PO HS [facility] Last Admin: 11/12/17 21:45 Dose: 20 mg Tamsulosin HCl (Flomax) 0.4 mg PO DAILY [facility] Last Admin: 11/13/17 11:11 Dose: Not Given - Labs Labs: 11/07/17 18:10 11/07/17 18:10 PT 11.1 SECONDS (9.7-12.2) 11/07/17 18:10 INR 1.0 11/07/17 18:10 APTT 29 SECONDS (21-34) 11/07/17 18:10 - Constitutional Appears: Well - Head Exam Head Exam: ATRAUMATIC, NORMAL INSPECTION, NORMOCEPHALIC - Eye Exam Eye Exam: EOMI, Normal appearance, PERRL Pupil Exam: NORMAL ACCOMODATION, PERRL - ENT Exam ENT Exam: Mucous Membranes Moist, Normal Exam - Neck Exam Neck Exam: Full ROM, Normal Inspection. absent: Lymphadenopathy - Respiratory Exam Respiratory Exam: Decreased Breath Sounds - Cardiovascular Exam Cardiovascular Exam: REGULAR RHYTHM, +S1, +S2 - GI/Abdominal Exam GI & Abdominal Exam: Soft, Diminished Bowel Sounds - Rectal Exam Rectal Exam: Deferred Assessment and Plan (1) Atrial flutter Status: Acute (2) Atrial flutter with rapid ventricular response Status: Acute (3) Chest pain Status: Acute (4) Dizziness Status: Acute (5) Dyspnea Status: Acute (6) New onset atrial fibrillation Status: Acute (7) Palpitations Status: Acute (8) CAD (coronary artery disease) Status: Chronic (9) Diabetes mellitus Status: Chronic (10) HLD (hyperlipidemia) Status: Chronic (11) HTN (hypertension) Status: Chronic - Assessment and Plan (Free Text) Plan: Patient examined. Patient is better. No palpitation. Patient is to go for EPS ablation today.
[2017-11-14] MEDS: Pantoprazole 40 mg EC Tab PO SCH (09:26)
[2017-11-14] MEDS ORDERED: DiphenhydrAMINE 50 mg/ml Inj IVP ONE (09:44)
--- NOTE | 2017-11-14 12:55 | CP.PCM.PN ---
Subjective - Date & Time of Evaluation Date of Evaluation: 11/13/17 Time of Evaluation: 06:30 - Subjective Subjective: patient for EPS ablation today Objective - Vital Signs/Intake and Output Vital Signs (last 24 hours): Temp Pulse Resp BP Pulse Ox 97.4 F L 58 L 20 130/84 99 11/14/17 08:41 11/14/17 08:41 11/14/17 08:41 11/14/17 08:41 11/14/17 08:41 Intake and Output: 11/14/17 11/14/17 06:59 18:59 Intake Total 240 Output Total 450 Balance -210 - Medications Medications: Current Medications Aspirin (Aspirin Chewable) 81 mg PO DAILY [facility] Last Admin: 11/14/17 09:26 Dose: 81 mg Lisinopril (Zestril) 5 mg PO DAILY [facility] Last Admin: 11/14/17 09:26 Dose: 5 mg Metoprolol Tartrate (Lopressor) 12.5 mg PO DAILY [facility] Last Admin: 11/14/17 09:27 Dose: 12.5 mg Pantoprazole Sodium (Protonix Ec Tab) 40 mg PO DAILY [facility] Last Admin: 11/14/17 09:26 Dose: 40 mg Rosuvastatin Calcium (Crestor) 20 mg PO HS [facility] Last Admin: 11/13/17 22:31 Dose: 20 mg Tamsulosin HCl (Flomax) 0.4 mg PO DAILY [facility] Last Admin: 11/14/17 09:26 Dose: 0.4 mg - Labs Labs: 11/07/17 18:10 11/07/17 18:10 PT 11.1 SECONDS (9.7-12.2) 11/07/17 18:10 INR 1.0 11/07/17 18:10 APTT 29 SECONDS (21-34) 11/07/17 18:10
--- NOTE | 2017-11-14 17:41 | CP.PCM.PN ---
Subjective - Date & Time of Evaluation Date of Evaluation: 11/14/17 Time of Evaluation: 09:40 - Subjective Subjective: clinically same Objective - Vital Signs/Intake and Output Vital Signs (last 24 hours): Temp Pulse Resp BP Pulse Ox 98.1 F 61 20 106/67 95 11/14/17 15:00 11/14/17 15:00 11/14/17 15:00 11/14/17 15:00 11/14/17 15:00 Intake and Output: 11/14/17 11/14/17 06:59 18:59 Intake Total 240 Output Total 450 Balance -210 - Medications Medications: Current Medications Aspirin (Aspirin Chewable) 81 mg PO DAILY [facility] Last Admin: 11/14/17 09:26 Dose: 81 mg Lisinopril (Zestril) 5 mg PO DAILY [facility] Last Admin: 11/14/17 09:26 Dose: 5 mg Metoprolol Tartrate (Lopressor) 12.5 mg PO DAILY [facility] Last Admin: 11/14/17 09:27 Dose: 12.5 mg Pantoprazole Sodium (Protonix Ec Tab) 40 mg PO DAILY [facility] Last Admin: 11/14/17 09:26 Dose: 40 mg Rosuvastatin Calcium (Crestor) 20 mg PO HS [facility] Last Admin: 11/13/17 22:31 Dose: 20 mg Tamsulosin HCl (Flomax) 0.4 mg PO DAILY [facility] Last Admin: 11/14/17 09:26 Dose: 0.4 mg - Labs Labs: 11/07/17 18:10 11/07/17 18:10 PT 11.1 SECONDS (9.7-12.2) 11/07/17 18:10 INR 1.0 11/07/17 18:10 APTT 29 SECONDS (21-34) 11/07/17 18:10 - Constitutional Appears: Well - Head Exam Head Exam: ATRAUMATIC, NORMAL INSPECTION, NORMOCEPHALIC - Eye Exam Eye Exam: EOMI, Normal appearance, PERRL Pupil Exam: NORMAL ACCOMODATION, PERRL - ENT Exam ENT Exam: Mucous Membranes Moist, Normal Exam - Neck Exam Neck Exam: Full ROM, Normal Inspection. absent: Lymphadenopathy - Respiratory Exam Respiratory Exam: Decreased Breath Sounds - Cardiovascular Exam Cardiovascular Exam: REGULAR RHYTHM, +S1, +S2 - GI/Abdominal Exam GI & Abdominal Exam: Soft, Diminished Bowel Sounds - Rectal Exam Rectal Exam: Deferred Assessment and Plan (1) Atrial flutter Status: Acute (2) Atrial flutter with rapid ventricular response Status: Acute (3) Chest pain Status: Acute (4) Dizziness Status: Acute (5) Dyspnea Status: Acute (6) New onset atrial fibrillation Status: Acute (7) Palpitations Status: Acute (8) CAD (coronary artery disease) Status: Chronic (9) Diabetes mellitus Status: Chronic (10) HLD (hyperlipidemia) Status: Chronic (11) HTN (hypertension) Status: Chronic - Assessment and Plan (Free Text) Plan: Patient examined. Patient is better. Continue metoprolol, aspirin. Supportive care.
--- NOTE | 2017-11-14 19:57 | CP.PCM.PN ---
Subjective - Date & Time of Evaluation Date of Evaluation: 11/14/17 Time of Evaluation: 08:30 - Subjective Subjective: Patient seen and evaluated Denies chest pain and dyspnea Objective - Vital Signs/Intake and Output Vital Signs (last 24 hours): Temp Pulse Resp BP Pulse Ox 98.1 F 61 20 106/67 95 11/14/17 15:00 11/14/17 15:00 11/14/17 15:00 11/14/17 15:00 11/14/17 15:00 - Medications Medications: Current Medications Aspirin (Aspirin Chewable) 81 mg PO DAILY [facility] Last Admin: 11/14/17 09:26 Dose: 81 mg Lisinopril (Zestril) 5 mg PO DAILY [facility] Last Admin: 11/14/17 09:26 Dose: 5 mg Metoprolol Tartrate (Lopressor) 12.5 mg PO DAILY [facility] Last Admin: 11/14/17 09:27 Dose: 12.5 mg Pantoprazole Sodium (Protonix Ec Tab) 40 mg PO DAILY [facility] Last Admin: 11/14/17 09:26 Dose: 40 mg Rosuvastatin Calcium (Crestor) 20 mg PO HS [facility] Last Admin: 11/13/17 22:31 Dose: 20 mg Tamsulosin HCl (Flomax) 0.4 mg PO DAILY [facility] Last Admin: 11/14/17 09:26 Dose: 0.4 mg - Labs Labs: 11/07/17 18:10 11/07/17 18:10 PT 11.1 SECONDS (9.7-12.2) 11/07/17 18:10 INR 1.0 11/07/17 18:10 APTT 29 SECONDS (21-34) 11/07/17 18:10
[2017-11-15] MEDS: Pantoprazole 40 mg EC Tab PO SCH (09:12)
[2017-11-15 09:22] VITALS: BP 125/78; TEMP 98.1; O2SAT 96
--- NOTE | 2017-11-15 10:54 | CP.PCM.PN ---
Subjective - Date & Time of Evaluation Date of Evaluation: 11/15/17 Time of Evaluation: 09:00 - Subjective Subjective: Medicine note- Dr. Murcia's service Patient was seen and examined at bedside. Patient reports no acute complaints at this time. Patient states he wasnt sure what he had done at [facility]. He denies any chest pain, palpitations, dyspnea. No events overnight, per nursing. Objective - Vital Signs/Intake and Output Vital Signs (last 24 hours): Temp Pulse Resp BP Pulse Ox 98.1 F 66 20 125/78 96 11/15/17 09:00 11/15/17 09:00 11/15/17 09:00 11/15/17 09:00 11/15/17 09:00 Intake and Output: 11/15/17 11/15/17 06:59 18:59 Intake Total 120 Output Total 700 Balance -580 - Medications Medications: Current Medications Aspirin (Aspirin Chewable) 81 mg PO DAILY [facility] Last Admin: 11/15/17 09:12 Dose: 81 mg Lisinopril (Zestril) 5 mg PO DAILY [facility] Last Admin: 11/15/17 09:12 Dose: 5 mg Metoprolol Tartrate (Lopressor) 12.5 mg PO DAILY [facility] Last Admin: 11/15/17 09:12 Dose: 12.5 mg Pantoprazole Sodium (Protonix Ec Tab) 40 mg PO DAILY [facility] Last Admin: 11/15/17 09:12 Dose: 40 mg Rosuvastatin Calcium (Crestor) 20 mg PO HS [facility] Last Admin: 11/14/17 21:19 Dose: 20 mg Tamsulosin HCl (Flomax) 0.4 mg PO DAILY [facility] Last Admin: 11/15/17 09:12 Dose: 0.4 mg - Labs Labs: 11/07/17 18:10 11/07/17 18:10 PT 11.1 SECONDS (9.7-12.2) 11/07/17 18:10 INR 1.0 11/07/17 18:10 APTT 29 SECONDS (21-34) 11/07/17 18:10 - Constitutional Appears: Non-toxic, No Acute Distress - Head Exam Head Exam: ATRAUMATIC, NORMAL INSPECTION, NORMOCEPHALIC - Eye Exam Pupil Exam: NORMAL ACCOMODATION, PERRL - ENT Exam ENT Exam: Mucous Membranes Moist - Cardiovascular Exam Cardiovascular Exam: REGULAR RHYTHM, +S1, +S2 - GI/Abdominal Exam GI & Abdominal Exam: Soft. absent: Tenderness, Diminished Bowel Sounds, Hypoactive Bowel Sounds, Pulsatile Mass - Extremities Exam Extremities Exam: Normal Capillary Refill, Normal Inspection - Neurological Exam Neurological Exam: Alert, Awake, Oriented x3 - Psychiatric Exam Psychiatric exam: Normal Affect, Normal Mood - Skin Skin Exam: Dry, Intact, Normal Color, Warm Assessment and Plan - Assessment and Plan (Free Text) Assessment: Atrial Flutter Nuclear scan on 11/11/17- normal, EF 65-70% Consult Cardio- Dr. Crespo s/p EPS ablation on 11/13/17 NSR on telemetry Continue Lopressor 12.5mg PO Daily CAD s/p stents Asa 81mg PO Daily Lopressor 12.mg PO Daily Lisinopril 5mg PO Daily Hyperlipidemia Crestor 20mg PO HS BPH Flomax 0.4mg PO Daily Prophylactic Measure Protonix 40mg PO Daily [facility]
[2017-11-15 13:22] VITALS: PULSE 58
--- NOTE | 2017-11-17 22:16 | CP.PCM.PN ---
Subjective - Date & Time of Evaluation Date of Evaluation: 11/09/17 Time of Evaluation: 09:20 - Subjective Subjective: Patient seen and evaluated Deneis chest pain and dyspnea Objective - Vital Signs/Intake and Output Vital Signs (last 24 hours): Temp Pulse Resp BP Pulse Ox 98.1 F 58 L 20 125/78 96 11/15/17 09:00 11/15/17 11:49 11/15/17 09:00 11/15/17 09:00 11/15/17 09:00 - Labs Labs: 11/07/17 18:10 11/07/17 18:10 PT 11.1 SECONDS (9.7-12.2) 11/07/17 18:10 INR 1.0 11/07/17 18:10 APTT 29 SECONDS (21-34) 11/07/17 18:10
--- NOTE | 2017-11-17 22:18 | CP.PCM.PN ---
Subjective - Date & Time of Evaluation Date of Evaluation: 11/15/17 Time of Evaluation: 08:30 - Subjective Subjective: patient seen and comfortable No cardiac events noted denies chest pain and dyspnea Objective - Vital Signs/Intake and Output Vital Signs (last 24 hours): Temp Pulse Resp BP Pulse Ox 98.1 F 58 L 20 125/78 96 11/15/17 09:00 11/15/17 11:49 11/15/17 09:00 11/15/17 09:00 11/15/17 09:00 - Labs Labs: 11/07/17 18:10 11/07/17 18:10 PT 11.1 SECONDS (9.7-12.2) 11/07/17 18:10 INR 1.0 11/07/17 18:10 APTT 29 SECONDS (21-34) 11/07/17 18:10
== END 2017-11-15 14:43 | disposition home or self-care (01) | DRG 138 ==
LOC: C.ER 16:58 → C.9E 18:45 → C.6T 22:45
PROVIDERS: ADMIT Internal Medicine Nephrology; ATTEND Internal Medicine Nephrology
DX: I48.92 Unspecified atrial flutter (principal); I11.0 Hypertensive heart disease with heart failure; E11.9 Type 2 diabetes mellitus without complications; I48.91 Unspecified atrial fibrillation; Z95.5 Presence of coronary angioplasty implant and graft; E78.5 Hyperlipidemia, unspecified; I25.10 Atherosclerotic heart disease of native coronary artery without angina pectoris; N40.0 Benign prostatic hyperplasia without lower urinary tract symptoms

== ENCOUNTER 2018-07-21 09:09 | Day surgery (SDC) | payer OTHER ==
[2018-06-02 07:46] VITALS: BMI 24.3
[2018-07-21] MEDS ORDERED: ceFAZolin IV 1 gm in Dextrose 2 GM/100 ML BAG IVPB ONE (12:14)
[2018-07-21] MEDS ORDERED: Bupivacaine 0.25% 20 ML INJ IJ ONE (12:14)
[2018-07-21] MEDS ORDERED: Lidocaine/Epinephrine 1% 1:100000 10 ML IJ ONE (12:15)
[2018-07-21] MEDS ORDERED: Midazolam 2 MG/2 ML VIAL ONE (12:18)
[2018-07-21] MEDS ORDERED: HYDROmorphone 0.5 mg/0.5 ml ISec IVP PRN (13:46)
--- NOTE | 2018-07-21 13:59 | PCM.SURG1 ---
Surgeon's Initial Post Op Note - Surgeon's Notes Surgeon: Radha Paz MD Neurodiagnostic Technologist: ELY Giang Type of Anesthesia: General Endo Pre-Operative Diagnosis: Sebaceous Cyst of mid Back. Mole on mid left back. Skin tag of Left upper back Operative Findings: Sebaceous Cyst of mid Back 4x3 cm. Mole on mid left back 1x1 cm. Skin tag of Left upper back Post-Operative Diagnosis: Sebaceous Cyst of mid Back 4x3 cm. Mole on mid left back 1x1 cm. Skin tag of Left upper back Operation Performed: Excision of Sebaceous Cyst of mid Back 4x3 cm. Layered closure of wound 4x3x3 cm. Wide local excision of Mole on mid left back 1x1 cm. Layered closure of wound 2x2x3 cm. Excision of Skin tag of Left upper back Specimen/Specimens Removed: Sebaceous Cyst of mid Back 4x3 cm. Mole on mid left back 1x1 cm. Skin tag of Left upper back Estimated Blood Loss: EBL {In ML}: 10 Blood Products Given: N/A Drains Used: No Drains Post-Op Condition: Good Date of Surgery/Procedure: 07/21/18 Time of Surgery/Procedure: 13:59
[2018-07-21 15:25] VITALS: BP 121/75; PULSE 82; RESP 18; TEMP 98; O2SAT 100
--- NOTE | 2018-07-22 01:15 | OP ---
Copied To: José Manuel Paz MD Attending MD: José Manuel Paz MD PROCEDURE DATE: 07/21/2018 PREOPERATIVE DIAGNOSES: 1. Sebaceous cyst of the mid back. 2. Irregular mole of left mid back. 3. Skin tag of left upper back. POSTOPERATIVE DIAGNOSES: 1. Sebaceous cyst of the mid back. 2. Irregular mole of left mid back. 3. Skin tag of the left upper back. PROCEDURES DONE: 1. Excision of the sebaceous cyst of the mid back, 4 x 3 cm. 2. Layered closure of the wound of mid back, 4 x 3 x 2 cm size. 3. Wide local excision of the mole of the left mid back, 3 x 2 x 2 cm. 4. Layered closure of the wound of the left mid back, 3 x 2 x 2 cm. 5. Wide local excision of the left upper back skin tag. SURGEON: José Manuel Paz MD SUPERVISOR RESEARCH SHOP: EUN Giang ANESTHESIA: General endotracheal tube anesthesia. ESTIMATED BLOOD LOSS: Around 10 mL. DRAINS: None. PATHOLOGY: 1. The skin tag was sent for the pathology. 2. Sebaceous cyst. 3. Irregular mole was sent to the pathology. COMPLICATIONS: None. INTRAOPERATIVE FINDINGS: The patient had approximately 4 x 3 x 3 cm sebaceous cyst of the mid back, 2 x 1 cm mole and 1 x 1 cm skin tag. DESCRIPTION OF PROCEDURE: On intraoperative steps, this is a 63-year-old male who was diagnosed with sebaceous cyst, as well as a mole and a skin tag of the back, and the patient was consented for the excision of the sebaceous cyst, mole and skin tag, brought to the OR and placed supine on the operating table. After induction of the anesthesia, the back was prepped and draped in the usual sterile fashion. The patient was placed in right lateral position. The local anesthesia was injected and an elliptical incision was made surrounding the sebaceous cyst, and the sebaceous cyst was completely excised. The upper and lower flaps were created. The dissection was carried down deep up to the muscles and the fascia, and proper hemostasis was achieved. The wound was closed in multiple layers. The deep subcu with 3-0 Vicryl, superficial subcu with 2-0 Vicryl, and skin with 4-0 Monocryl, and dry sterile dressing was applied. Now the local anesthesia was injected surrounding the mole side and elliptical incision was made and wide local excision of the mole was done including the subcutaneous tissue and the wound was irrigated. The wound was closed in multiple layers. The deep subcu with 2-0 Vicryl, superficial subcu with 2-0 Vicryl, and skin with 4-0 Monocryl, and dry sterile dressing was applied. The skin tag was excised and the wound was closed in one layer with 4-0 Monocryl and dry sterile dressing was applied. The patient was reversed from sedation, sent to the postanesthesia care unit in stable condition. There was no apparent complication. José Manuel Paz MD MICHELLE
== END 2018-07-21 15:52 | disposition home or self-care (01) ==
LOC: C.SDS 09:09
PROVIDERS: ATTEND Surgery Surgical Critical Care
DX: L72.3 Sebaceous cyst (principal); L91.8 Other hypertrophic disorders of the skin; L82.1 Other seborrheic keratosis; L72.0 Epidermal cyst
CPT/HCPCS: 11200; 11403; 13101; 82948; 88305; J0690; J2250; J3010

== ENCOUNTER 2019-03-05 11:31 | Outpatient (CLI) | payer OTHER | END 2019-03-05 11:32 | disposition home or self-care (01) | LOC: C.RADH 11:31 | DX: E11.9 Type 2 diabetes mellitus without complications (principal); R05 Cough ==

== ENCOUNTER 2019-03-24 08:19 | Outpatient (CLI) | payer OTHER | END 2019-03-24 08:20 | disposition home or self-care (01) | LOC: C.PAT 08:19 ==

== ENCOUNTER 2019-03-24 13:28 | Outpatient (CLI) | payer OTHER | END 2019-03-24 13:29 | disposition home or self-care (01) | LOC: C.USIC 13:29 ==

== ENCOUNTER 2019-03-26 08:01 | Day surgery (SDC) | payer OTHER ==
[2019-03-24 08:32] VITALS: BMI 27.0
[2019-03-26] MEDS ORDERED: Lactated Ringer's 500 ML IV ONE ×2 (10:47)
[2019-03-26] MEDS ORDERED: Propofol 10 mg/ml Inj (20 ML) ONE ×2 (10:56→11:21)
[2019-03-26 11:59] VITALS: TEMP 96.2
[2019-03-26 13:26] VITALS: O2SAT 100
[2019-03-26 13:33] VITALS: BP 138/81; PULSE 59; RESP 12
== END 2019-03-26 12:30 | disposition home or self-care (01) ==
LOC: C.ENDO 08:01
PROVIDERS: ATTEND Internal Medicine Gastroenterology
DX: D12.2 Benign neoplasm of ascending colon (principal); Z12.11 Encounter for screening for malignant neoplasm of colon; D12.3 Benign neoplasm of transverse colon; K64.1 Second degree hemorrhoids; E11.9 Type 2 diabetes mellitus without complications; I10 Essential (primary) hypertension; I25.10 Atherosclerotic heart disease of native coronary artery without angina pectoris; N40.0 Benign prostatic hyperplasia without lower urinary tract symptoms
CPT/HCPCS: 45380; 45385; 82948; 88305; J2704; J7120

== ENCOUNTER 2019-04-11 08:23 | Emergency (ER) | payer OTHER ==
[2019-04-11 08:23] VITALS: BMI 27.0
--- NOTE | 2019-04-11 09:24 | C.PDOC ---
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 States cough is worse at night. Denies chest pain, SOB, or fever. States he thinks its his allergies. Patient reports he did not take any medication for it. Time Seen by Provider: 04/11/19 08:41 Chief Complaint (Nursing): ENT Problem History Per: Patient History/Exam Limitations: no limitations Onset/Duration Of Symptoms: Days Current Symptoms Are (Timing): Still Present Past Medical History Reviewed: Historical Data, Nursing Documentation, Vital Signs Vital Signs: Last Vital Signs Temp 98.7 F 04/11/19 08:26 Pulse 68 04/11/19 08:26 Resp 20 04/11/19 08:26 BP 107/75 04/11/19 08:26 Pulse Ox 96 04/11/19 08:26 Primary Care Provider: Clinic,Med Surg - Medical History PMH: Anxiety, Cardia Arrhythmia (A FIB), Diabetes, Fractures (CHILDHOOD), Gastritis, HTN, Hypercholesterolemia Denies: Asthma, Bronchitis, COPD, Emphysema, Chronic Kidney Disease, Seizures, Sleep Apnea, TIA Surgical History: Coronary Stent (PT. UNSURE) Denies: Endoscopy, Pacemaker - [facility] Procedures FLUOROSCOPY OF LEFT HEART USING LOW OSMOLAR CONTRAST (10/13/16) FLUOROSCOPY OF MULT COR ART USING L OSM CONTRAST (10/13/16) MEASURE OF CARDIAC SAMPL & PRESSURE, L HEART, PERC APPROACH (11/08/16) PLAIN RADIOGRAPHY OF LEFT HEART USING OTHER CONTRAST (11/08/16) PLAIN RADIOGRAPHY OF MULT COR ART USING OTH CONTRAST (11/08/16) Family History: States: No Known Family Hx - Social History Hx Tobacco Use: No Hx Alcohol Use: No Hx Substance Use: No - Immunization History Hx Tetanus Toxoid Vaccination: No Hx Influenza Vaccination: No Hx Pneumococcal Vaccination: No Review Of Systems Constitutional: Negative for: Fever, Chills ENT: Positive for: Throat Pain (sore throat) Cardiovascular: Negative for: Chest Pain Respiratory: Negative for: Cough, Shortness of Breath Gastrointestinal: Negative for: Nausea, Vomiting Neurological: Negative for: Headache, Dizziness Physical Exam - Physical Exam Appears: Well, Non-toxic, No Acute Distress Skin: Warm, Dry Head: Atraumatic, Normacephalic Eye(s): bilateral: PERRL Ear(s): Bilateral: Normal Nose: Other (nasal congestion) Oral Mucosa: Moist Tongue: Normal Appearing, No Swelling Lips: Normal Appearing, No Swelling Teeth: Normal Dentition Gingiva: Normal Appearing Throat: Erythema (mild erythema to the uvula), No Exudate, No Drooling Neck: Supple Cardiovascular: Rhythm Regular, Murmur (blowing murmur around left 4th intercostal space) Respiratory: Normal Breath Sounds, No Rales, No Rhonchi, No Wheezing Extremity: No Pedal Edema Extremity: Bilateral: Atraumatic, Normal ROM Neurological/Psych: Oriented x3, Normal Speech (hoarse voice), Normal Cognition ED Course And Treatment O2 Sat by Pulse Oximetry: 96 (RA) Pulse Ox Interpretation: Normal Medical Decision Making Medical Decision Making: Plan: --Rapid Strep --Claritin 10 mg PO --Tylenol PO 0955 pt with clear lungs. rapid strep neg. will d/c with claritin and tylneol and pmd f/u Disposition Counseled Patient/Family Regarding: Studies Performed, Diagnosis, Need For Followup, Rx Given - Disposition Referrals: Twin Buckley MD [Staff Provider] - Disposition: HOME/ ROUTINE Disposition Time: 09:56 Condition: GOOD Additional Instructions: [place] bucky pastilla de loratadina diariamente. [place] Tylenol segn lo prescrito para cualquier dolor. Stacy un seguimiento con el Dr. Buckley la prxima semana. Regreso por cualquier sntoma peor. Take one loratadine pill daily. Take Tylenol as prescribed for any pain. Follow up with Dr Buckley next week. Return for any worse symptoms. 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 - Scribe Statement The provider has reviewed the documentation as recorded by the Scribe Brittanie Song All medical record entries made by the Scribe were at my direction and personally dictated by me. I have reviewed the chart and agree that the record accurately reflects my personal performance of the history, physical exam, medical decision making, and the department course for this patient. I have also personally directed, reviewed, and agree with the discharge instructions and disposition.
[2019-04-11 10:02] VITALS: BP 132/77; PULSE 66; RESP 18; TEMP 98.1
[2019-04-11 18:51] VITALS: O2SAT 96
== END 2019-04-11 10:10 | disposition home or self-care (01) ==
LOC: C.ER 08:23
DX: J30.2 Other seasonal allergic rhinitis (principal); E78.00 Pure hypercholesterolemia, unspecified; E11.9 Type 2 diabetes mellitus without complications; I25.10 Atherosclerotic heart disease of native coronary artery without angina pectoris; Z95.1 Presence of aortocoronary bypass graft; I48.91 Unspecified atrial fibrillation; I10 Essential (primary) hypertension

== ENCOUNTER 2019-04-24 09:11 | Outpatient (CLI) | payer OTHER | END 2019-04-24 09:12 | disposition home or self-care (01) | LOC: C.CARD 09:11 ==